=== PATIENT | female | born 1980 | race Caucasian/White ===

== ENCOUNTER 2020-01-24 10:13 | Emergency (ER) | payer OTHER, SELFPAY ==
[2020-01-24 10:25] VITALS: BP 142/93; PULSE 98; RESP 16; TEMP 36.8; O2SAT 99
--- NOTE | 2020-01-24 10:29 | ECG_ITS ---
Test Reason : ARRHYTHMIA Blood Pressure : / mmHG Vent. Rate : 090 BPM Atrial Rate : 090 BPM P-R Int : 136 ms QRS Dur : 078 ms QT Int : 356 ms P-R-T Axes : 068 029 040 degrees QTc Int : 435 ms Normal sinus rhythm Normal ECG No previous ECGs available Referred By: Lucy Barrientos Electronically Signed By:ZOE GALVAN MD
--- NOTE | 2020-01-24 10:29 | XR_ITS ---
EXAMINATION: XR CHEST CLINICAL INFORMATION: Palpitations COMPARISON: Previous chest x-ray and chest CT January 2009 TECHNIQUE: Frontal view of the chest was obtained. FINDINGS: The cardiac and mediastinal contours are normal. The lungs are well inflated. There may be bronchial wall thickening at the lung bases. The lungs are otherwise clear. There is no pleural effusion or pneumothorax. Bony structures are unremarkable. XR/XR chest 1V IMPRESSION: Well-inflated lungs. Question mild bronchial wall thickening at the lung bases. No evidence of pneumonia.
--- NOTE | 2020-01-24 10:30 | ED.ARRPALP ---
HPI - Arrhythmia/Palpitations General Chief Complaint: Arrhythmia/Palpitations Stated Complaint: palpitations Time Seen by Provider: 01/24/20 10:19 Source: patient Mode of arrival: ambulatory Limitations: no limitations History of Present Illness HPI narrative: on OCPs MD complaint: rapid heart beat, heart racing and palpitations Onset (ago): week(s) (1 week ago) Duration: intermittent Severity: moderate Context: occurred during rest and occurred during exertion Associated symptoms: chest pain, shortness of breath and diaphoresis Related Data Previous Rx's Medication Instructions Recorded metoprolol succinate 12.5 mg PO DAILY #30 tab 01/24/20 Allergies Allergy/AdvReac Type Severity Reaction Status Date / Time No Known Allergies Allergy Unverified 11/10/19 15:50 , dogs. Allergy Unknown Uncoded 03/15/19 00:00 Review of Systems Review of Systems: Constitutional : No Weight loss, No Fever, No Chills ENT/Mouth : No sore throat, No Rhinorrhea Eyes: No Eye Pain, No Swelling Cardiovascular : pos Chest Pain, pos SOB, no Dyspnea on Exertion, No Orthopnea, No Edema, pos Palpitations Respiratory : No Cough, No Sputum Gastrointestinal : pos Nausea, No Vomiting, No Diarrhea, No abdominal Pain, No Hematochezia, No Melena Genitourinary : No Dysuria, No Urinary Frequency Musculoskeletal : No joint pain, No Myalgias, No Joint Swelling Skin : No Skin Lesions, No rash Neuro : No Weakness, No Numbness, No Dizziness, No Headache All other systems reviewed and are negative PMFSH Past Medical History Attestation statement: The following information was validated with the patient. Medical History Asthma Social History Social History (Updated 01/24/20 @ 10:32 by Lucy Barrientos DO) Alcohol intake: never Smoking Status: Never smoker Use of substances other than those prescribed or required for medical reasons: No Advance Directives: No Advance Directives Information Provided: Yes Physical Exam Vital Signs: Vital Signs: Last Vital Signs Temp 98.7 F 01/24/20 11:19 Pulse 90 01/24/20 11:19 Resp 18 01/24/20 11:19 BP 143/90 H 01/24/20 11:19 Pulse Ox 96 01/24/20 11:19 Body Mass Index 0.1 Appearance: Alert. Oriented X3. No acute distress. Eyes: Pupils equal, round and reactive to light. ENT: Pharynx normal. Neck: Normal inspection. Neck supple. CVS: tachycardic heart rate and rhythm. Pulses normal. Respiratory: No respiratory distress. Breath sounds normal. Abdomen: Soft and nontender. Skin: Skin warm and dry. Normal skin color. Normal skin turgor. Extremities: No lower extremity edema. No calf ttp Neuro: Oriented X 3. No motor deficit. No sensory deficit. Course Course Course Narrative: no acute findings, will start on low dose metoprolol and refer to PCP for tachycardia and persistent high BPs MDM - Arrhythmia/Palpitations MDM Narrative Medical decision making narrative: 39 yo female on OCPs here with palpitations for 1 + weeks that have worsened also had associated sharp chest pain today around 4am - she gets weekly negative COVID tests done has never been positive, at this time will need labs, lytes, troponin x 1, ddimer for OCPs, possible start of bblocker if this continues, dispo per results and findings, seems atypical for ACS/dissection Lab Data Result diagrams: 01/24/20 10:42 01/24/20 11:43 Labs: Lab Results 01/24/20 01/24/20 01/24/20 Range/Units 10:42 10:42 10:42 WBC 6.8 (4.8-10.8) X10*3/uL RBC 5.05 (4.20-5.50) X10*6/uL Hgb 15.3 (12.0-16.0) g/dl Hct 46.0 (37-47) % MCV 91.1 (80-98) fL MCH 30.3 (27.0-33.0) pg MCHC 33.3 (31.0-35.0) g/dl RDW 12.1 (11.0-16.0) % Plt Count 328 (160-400) X10*3/uL MPV 8.6 L (9.4-12.3) fL Immature Gran % (Auto) 0.3 (0.0-0.4) % Neut % (Auto) 61.5 (45-73) % Lymph % (Auto) 27.6 (20-40) % [place] % (Auto) 9.0 (2-11) % Eos % (Auto) 1.0 (0-4) % Baso % (Auto) 0.6 (0-2) % Lymph # (Auto) 1.9 (1.2-4.9) X10*3/uL [place] # (Auto) 0.6 (0.1-1.2) X10*3/uL Eos # (Auto) 0.1 (0.0-0.4) X10*3/uL Baso # (Auto) 0.0 (0.0-0.2) X10*3/uL Abs Immat Gran (auto) 0.02 (0.00-0.03) X10*3/uL Absolute Neuts (auto) 4.2 (2.0-8.3) X10*3/uL Absolute Nucleated RBC 0.000 (0.0-0.012) X10*3/uL Nucleated RBC % (auto) 0.0 (0.0-0.2) /100WBC D-Dimer < 200 NG/ML Sodium Cancelled Potassium Cancelled Chloride Cancelled Carbon Dioxide Cancelled Anion Gap Cancelled BUN Cancelled Creatinine Cancelled Estim Creat Clear Calc Cancelled Estimated GFR Cancelled Random Glucose Cancelled Calcium Cancelled Magnesium Cancelled Total Bilirubin Cancelled Direct Bilirubin Cancelled AST Cancelled ALT Cancelled Alkaline Phosphatase Cancelled Troponin I High Sens (<3.5-17.0) ng/L B-Natriuretic Peptide (<100) pg/mL Total Protein Cancelled Albumin Cancelled Lipase Cancelled TSH Cancelled 01/24/20 01/24/20 Range/Units 10:42 11:43 WBC (4.8-10.8) X10*3/uL RBC (4.20-5.50) X10*6/uL Hgb (12.0-16.0) g/dl Hct (37-47) % MCV (80-98) fL MCH (27.0-33.0) pg MCHC (31.0-35.0) g/dl RDW (11.0-16.0) % Plt Count (160-400) X10*3/uL MPV (9.4-12.3) fL Immature Gran % (Auto) (0.0-0.4) % Neut % (Auto) (45-73) % Lymph % (Auto) (20-40) % [place] % (Auto) (2-11) % Eos % (Auto) (0-4) % Baso % (Auto) (0-2) % Lymph # (Auto) (1.2-4.9) X10*3/uL [place] # (Auto) (0.1-1.2) X10*3/uL Eos # (Auto) (0.0-0.4) X10*3/uL Baso # (Auto) (0.0-0.2) X10*3/uL Abs Immat Gran (auto) (0.00-0.03) X10*3/uL Absolute Neuts (auto) (2.0-8.3) X10*3/uL Absolute Nucleated RBC (0.0-0.012) X10*3/uL Nucleated RBC % (auto) (0.0-0.2) /100WBC D-Dimer NG/ML Sodium 136 Potassium 4.0 Chloride 103 Carbon Dioxide 24 Anion Gap 13 BUN 11 Creatinine 0.69 Estim Creat Clear Calc 97.5 Estimated GFR > 60 Random Glucose 90 Calcium 8.2 L Magnesium 1.9 Total Bilirubin 0.9 Direct Bilirubin 0.3 AST 24 ALT 13 Alkaline Phosphatase 44 Troponin I High Sens < 3.5 (<3.5-17.0) ng/L B-Natriuretic Peptide 22 (<100) pg/mL Total Protein 6.9 Albumin 3.8 Lipase 8 TSH 1.83 ECG Data Attestation: I personally reviewed and interpreted this ECG as follows: ECG interpretation date: 01/24/20 ECG interpretation time: 11:16 Interpretation: Rate: 90 Rhythm: NSR [place]: normal Normal P waves. Normal SANNA. Normal QRS complex. ST T wave : normal qTC: normal prior studies: no acute ischemia The study has been interpreted contemporaneously by me. . Discharge Plan Discharge Clinical Impression: Palpitations, Sinus tachycardia Patient Disposition: Home, Self-Care Instructions: Tachycardia (ED) Additional Instructions: return to ED for any worsening symptoms or concerns you will likely need an holter monitor by your pcp Prescriptions: New metoprolol succinate 25 mg tablet extended release 24 hr 12.5 mg PO DAILY Qty: 30 RF: 0 Referrals: Kevon Hernadez MD [Primary Care Provider] - 2 days (call for next appointment) Stand Alone Forms: Work/School Release
[2020-01-24 10:48] LABS: MANUAL DIFF FLAG NO
[2020-01-24 10:49] LABS: Basophils Percent Auto 0.6 % (0-2); Eosinophils Absolute Auto 0.1 X10*3/uL (0.0-0.4); Hemoglobin 15.3 g/dl (12.0-16.0); Imm Gran Abs Auto 0.02 X10*3/uL (0.00-0.03); Imm Gran Pct Auto 0.3 % (0.0-0.4); Lymphocytes Absolute Auto 1.9 X10*3/uL (1.2-4.9); Lymphocytes Percent Auto 27.6 % (20-40); Mean Corpuscular HGB Conc 33.3 g/dl (31.0-35.0); Mean Corpuscular Hemoglobin 30.3 pg (27.0-33.0); Mean Corpuscular Volume 91.1 fL (80-98); Mean Platelet Volume 8.6 fL (9.4-12.3); Monocytes Absolute Auto 0.6 X10*3/uL (0.1-1.2); Neutrophils Absolute Auto 4.2 X10*3/uL (2.0-8.3); Neutrophils Percent Auto 61.5 % (45-73); Platelet Count 328 X10*3/uL (160-400); Red Blood Count 5.05 X10*6/uL (4.20-5.50); Red Cell Distribution Width 12.1 % (11.0-16.0); White Blood Count 6.8 X10*3/uL (4.8-10.8)
[2020-01-24 10:59] LABS: D Dimer < 200 NG/ML
[2020-01-24 11:19] VITALS: BP 143/90; PULSE 90; RESP 18; TEMP 37.1; O2SAT 96
[2020-01-24 11:20] LABS: B Type Natriuretic Peptide 22 pg/mL (<100); Troponin-I High Sensitivity < 3.5 ng/L (<3.5-17.0)
--- NOTE | 2020-01-24 11:24 | PC.NURSE ---
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
[2020-01-24 12:14] LABS: Alanine Aminotransferase 13 U/L (0-31); Albumin Level 3.8 g/dL (3.5-5.0); Alkaline Phosphatase 44 U/L (39-117); Anion Gap 13 (12-20); Aspartate Amino Transferase 24 U/L (5-31); Bilirubin Direct 0.3 mg/dL (0.0-0.5); Bilirubin Total 0.9 mg/dL (0.0-1.0); Blood Urea Nitrogen 11 mg/dL (9-16); Calcium 8.2 mg/dL (8.4-10.2); Carbon Dioxide 24 mmol/L (22-29); Chloride 103 mmol/L (96-108); Creatinine Clr Calc Pharmacy 97.5; Estimated Glomerular Filt Rate > 60; Glucose Random 90 mg/dL (60-115); Lipase 8 U/L (8-78); Magnesium 1.9 mg/dL (1.6-2.6); Sodium 136 mmol/L (135-145); Total Protein 6.9 g/dL (6.5-8.0)
[2020-01-24 12:35] LABS: Thyroid Stimulating Hormone 1.83 uIU/mL (0.32-4.0)
== END 2020-01-24 13:38 | disposition home or self-care (01) ==
PROVIDERS: Emergency Provider Emergency Medicine; PCP Internal Medicine
DX: R00.2 Palpitations (principal); R00.0 Tachycardia, unspecified; Z79.899 Other long term (current) drug therapy
CPT/HCPCS: 36415; 71045; 80048; 80076; 83690; 83735; 83880; 84443; 84484; 85025; 85379; 93005; 99284

== ENCOUNTER 2022-09-04 11:29 | Outpatient (AMB) | payer BC, SELFPAY ==
[2022-09-04 11:31] VITALS: BP 130/90; PULSE 97; O2SAT 98; BMI 25.1
--- NOTE | 2022-09-04 11:31 | A.OFFPC_ITS ---
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 Allergy (Unknown, Uncoded 01/25/20 14:42) Unknown Tobacco use date assessed: 09/04/22 Dental Screening Dental Screen Date: 09/04/22 Did you have a dental visit in the last 12 months?: Yes Did you have a dental problem in the last 6 months where you did not have access to dental care?: No Was dental information given to patient?: Patient has dentist HPI lower back upper buttocks pain HPI Details left low back pain to buttock and upper pos thigh intermittently for a yea; more lifting and twisting at work; no change in BMs or urine PFSH Medical History (Updated 09/04/22 @ 11:53 by Kevon Hernadez MD) Asthma Surgical History No pertinent past surgical history Family History Father No problems noted. Mother No problems noted. Social History (Updated 01/24/20 @ 10:32 by Meka Barrientos DO) Housing: House Alcohol intake: never Patient Tobacco Use Status: Never used Tobacco e-Cigarette/Vaping Use: Never Used service: No Current occupational status: employed Current occupational exposures/hazards: No Cognitive needs: No Hearing needs: No Vision needs: No Questionnaire PHQ-9 Over the last 2 weeks, how often have you been bothered by any of the following problems? 1. Little interest or pleasure in doing things: not at all 2. Feeling down, depressed, or hopeless: not at all 3. Trouble falling or staying asleep, or sleeping too much: not at all 4. Feeling tired or having little energy: not at all 5. Poor appetite or overeating: not at all 6. Feeling bad about yourself - or that you are a failure or have let yourself or your family down: not at all 7. Trouble concentrating on things, such as reading the newspaper or watching television: not at all 8. Moving or speaking so slowly that other people could have noticed. Or the opposite - being so fidgety or restless that you have been moving around a lot more than usual: not at all 9. Thoughts that you would be better off or of hurting yourself in some way: not at all Total score: 0 Source: Developed by Drs. Maksim Pool, Berenice Steward, Vazquez Mayfield and colleagues, with an educational sridevi from [employer]. Thrive Questionnaire Date Thrive assessed: 09/04/22 I am a: Patient What is your living situation today?: I have a steady place to live Within the past 12 months, did the food you bought not last and you didn't have the money to get more?: Never true Within the past 12 months, did you worry whether your food would run out before you got money to buy more?: Never true Do you have trouble paying for medicines?: No Do you have trouble getting transportation to medical appointments?: No Do you have trouble paying your heating and electricity bill?: No Do you have trouble taking care of your child, family member or friend?: No Do you have trouble with day-to-day activities such as bathing, preparing meals, shopping, managing finances, etc.?: No Are you currently unemployed and looking for a job?: No Are you interested in more education?: No Please select the resources that you would like help with: None Currently or been in a relationship where the following occur: no concerns reported AUDIT C Alcohol Use Questionnaire (AUDIT-C) 1. How often do you have a drink containing alcohol?: Never Total Score: 0 DHAVAL-7 AMB Questionnaire DHAVAL-7 Date DHAVAL - 7 assessed: 09/04/22 Feeling nervous, anxious, or on edge: 0 = Not at all Not being able to stop or control worryin = Not at all Worrying too much about different things: 0 = Not at all Trouble relaxin = Not at all Being so restless that it is hard to sit still: 0 = Not at all Becoming easily annoyed or irritable: 0 = Not at all Feeling afraid as if something awful might happen: 0 = Not at all Total DHAVAL-7 score (0-4 normal; 5-9 mild; 10-14 moderate; 15-21 severe): 0 Source: Developed by Drs. Maksim Pool, Berenice Steward, Vazquez Mayfield and colleagues, with an educational sridevi from [employer]. Review of Systems Const Denies chills, Denies headache(s) and Denies weight loss ENT Denies headache(s) Card Denies chest pain, Denies syncope, Denies irregular heart rhythm and Denies dyspnea Resp Denies chest congestion, Denies cough and Denies dyspnea GI Denies change in stool character, Denies nausea and Denies vomiting Musc Denies deformity and Denies joint swelling Neuro Denies syncope and Denies headache(s) Physical exam (Primary Care) Vital Signs: Last Vital Signs Pulse 97 09/04/22 11:31 BP 130/90 H 09/04/22 11:31 Pulse Ox 98 09/04/22 11:31 Oxygen Delivery Method Room Air 09/04/22 11:31 BMI result Body Mass Index 25.1 Tobacco/Smoking Status: Tobacco use Status Tobacco use date assessed 09/04/22 09/04/22 11:37 Patient Tobacco Use Status Never used Tobacco 09/04/22 11:37 e-Cigarette/Vaping Use Never Used 09/04/22 11:37 PHQ-9: PHQ-9 Score PHQ-9: Total score 0 09/04/22 11:37 Thrive Assessment: Date of Thrive Assessment Date Thrive assessed 09/04/22 09/04/22 11:37 Currently or been in a relationship where the following occur: no concerns reported Const General: cooperative, comfortable and no acute distress Resp Effort & Inspection: normal respiratory effort Auscultation: clear to auscultation bilaterally Percussion: percussion normal Cardio Jugular venous distension: no JVD Rate: regular rate Rhythm: regular rhythm GI Inspection: Yes normal to inspection Back/Spine/Pelvis Other: tender left paralumbar musc; nl reflexes and neg SLR Assessment and Plan Assessment & Plan (1) Low back pain: Code(s): M54.50 - Low back pain, unspecified Plan: xr pt and rx Orders: Orders Comprehensive [place]. Panel Fast Today N28.9 - Disorder of kidney and ureter, unspecified Lipid Panel Today E78.5 - Hyperlipidemia, unspecified Thyroid Stimulating Hormone Today E03.9 - Hypothyroidism, unspecified Complete Blood Count Auto Diff Today D64.9 - Anemia, unspecified PT Evaluation and Treatment Today M54.50 - Low back pain, unspecified XR lumbar spine 2-3V Today M54.9 - Dorsalgia, unspecified Referrals Gastroenterology Referral R10.9 - Unspecified abdominal pain Medications: New naproxen (Naprosyn) 500 mg PO BID PRN 60 tabs 0RF pain Coding Level of Care Code Est Pt Level 3 (41930) Diagnoses Low back pain M54.50
== END 2022-09-04 11:51 | disposition home or self-care (01) ==
PROVIDERS: PCP Internal Medicine; Visit Provider Internal Medicine
DX: M54.50 Low back pain, unspecified (principal)
CPT/HCPCS: 99213

== ENCOUNTER 2022-09-20 09:44 | Outpatient (REF) | payer BC, OTHER, SELFPAY ==
[2022-09-20 09:55] LABS: MANUAL DIFF FLAG NO
[2022-09-20 10:14] LABS: Basophils Percent Auto 0.4 % (0-2); Eosinophils Absolute Auto 0.1 X10*3/uL (0.0-0.4); Hematocrit 44.7 % (37.0-47.0); Hemoglobin 14.7 g/dl (12.0-16.0); Imm Gran Abs Auto 0.03 X10*3/uL (0.00-0.03); Imm Gran Pct Auto 0.3 % (0.0-0.4); Lymphocytes Percent Auto 19.4 % (20-40); Mean Corpuscular HGB Conc 32.9 g/dl (31.0-35.0); Mean Corpuscular Hemoglobin 30.6 pg (27.0-33.0); Mean Corpuscular Volume 93.1 fL (80.0-98.0); Mean Platelet Volume 8.6 fL (9.4-12.3); Monocytes Absolute Auto 0.7 X10*3/uL (0.1-1.2); Monocytes Percent Auto 6.7 % (2-11); Neutrophils Absolute Auto 7.6 x10*3/uL (2.0-8.3); Neutrophils Percent Auto 72.2 % (45-73); Platelet Count 341 X10*3/uL (160-400); Red Cell Distribution Width 11.9 % (11.0-16.0); White Blood Count 10.5 X10*3/uL (4.8-10.8)
[2022-09-20 10:56] LABS: Alanine Aminotransferase 16 U/L (0-31); Alkaline Phosphatase 56 U/L (39-117); Anion Gap 18 (12-20); Aspartate Amino Transferase 25 U/L (5-31); Bilirubin Total 0.4 mg/dL (0.0-1.0); Blood Urea Nitrogen 12 mg/dL (9-16); Calcium 9.2 mg/dL (8.4-10.2); Carbon Dioxide 18 mmol/L (22-29); Chloride 108 mmol/L (96-108); Cholesterol 242 mg/dL; Estimated Glomerular Filt Rate > 60; Glucose Fasting 85 mg/dL (60-99); HDL Cholesterol 71 mg/dL; LDL Cholesterol Calculated 152 mg/dl; Potassium 4.6 mmol/L (3.3-5.1); Sodium 139 mmol/L (135-145); Total Protein 7.5 g/dL (6.5-8.0); Triglycerides 98 mg/dL
[2022-09-20 11:10] LABS: Thyroid Stimulating Hormone 1.71 uIU/mL (0.32-4.0)
== END 2022-09-20 09:45 | disposition home or self-care (01) ==
LOC: HO.LAB 09:44
PROVIDERS: PCP Internal Medicine; Visit Provider Internal Medicine
DX: E78.5 Hyperlipidemia, unspecified (principal); N28.9 Disorder of kidney and ureter, unspecified; E03.9 Hypothyroidism, unspecified; D64.9 Anemia, unspecified
CPT/HCPCS: 36415; 80053; 80061; 84443; 85025

== ENCOUNTER 2022-10-16 11:48 | Outpatient (REF) | payer BC, SELFPAY ==
--- NOTE | ~2022-10-16 | XR_ITS ---
EXAMINATION: XR LUMBOSACRAL SPINE CLINICAL INFORMATION: Pain mostly lower back COMPARISON: None available. TECHNIQUE: Three views of the lumbosacral spine. FINDINGS: Minimal rightward curvature of the lumbar spine. Mild multilevel lumbar spondylosis with mild loss of disc space height at L2-L3 and L5-S1. Possible spondylolysis in the lower lumbar spine is difficult to confirm due to overlying bone and soft tissues. XR/XR lumbar spine 2-3V IMPRESSION: Mild multilevel lumbar spondylosis. Additional imaging with CT scan or MRI should be considered for better visualization as these modalities are much more sensitive for detection of fracture or other underlying pathology.
== END 2022-10-16 11:49 | disposition home or self-care (01) ==
LOC: HO.XRAY 11:48
PROVIDERS: PCP Internal Medicine; Visit Provider Internal Medicine
DX: M54.50 Low back pain, unspecified (principal); M47.816 Spondylosis without myelopathy or radiculopathy, lumbar region
CPT/HCPCS: 72100

== ENCOUNTER 2023-05-27 07:16 | Day surgery (SDC) | payer BC, SELFPAY ==
[2023-05-25 13:34] VITALS: BMI 25.0
--- NOTE | 2023-05-25 15:14 | HO.ANESPROP2 ---
Documented by User: Suze Cornelius NP 05/25/23 15:14 HPI - Anesthesia Eval Consult details Narrative: 42yo F for Colonoscopy PMFSH Active Problems Active Problems: All Active Problems (Updated 09/04/22 @ 11:53 by Kevon Hernadez MD) Low back pain (Acute) Intermittent palpitations (Acute) Neck pain (Acute) Past Medical History Medical History (Updated 09/04/22 @ 11:53 by Kevon Hernadez MD) Asthma Family History Family History Father No problems noted. Mother No problems noted. Surgical History Surgical History History of surgery Hx of myringotomy History of tonsillectomy and adenoidectomy Social History Social History (Updated 01/24/20 @ 10:32 by Meka Barrientos DO) Housing: House Alcohol intake: never Patient Tobacco Use Status: Never used Tobacco e-Cigarette/Vaping Use: Never Used Advance Directives: No Advance Directives Information Provided: Yes service: No Current occupational status: employed Current occupational exposures/hazards: No Cognitive needs: No Hearing needs: No Vision needs: No Meds Allergies Allergy/AdvReac Type Severity Reaction Status Date / Time dog dander [dogs] Allergy Unknown Unknown Verified 05/27/23 07:52 Home Medications Medication Instructions Recorded Confirmed Last Taken Type L norgest/E estradiol-E estrad 1 tab PO DAILY 01/25/20 05/25/23 Unknown History 0.15 mg-30 mcg (84)/10 mcg(7) tabs,3mos (Seasonique) Exam Height,Weight and Vital Signs: Height 5 ft Weight 58.06 kg Assessment and Plan Assessment Anesthesia Assessment: Chart Reviewed Documented by User: Yamil Calvillo MD 05/27/23 07:58 PMF Past Medical History Medical History (Updated 09/04/22 @ 11:53 by Kevon Hernadez MD) Asthma Family History Family History Father No problems noted. Mother No problems noted. Family history of problems with anesthesia: No Surgical History Surgical History History of surgery Hx of myringotomy History of tonsillectomy and adenoidectomy History of Problems with Anesthesia: No Social History Social History (Updated 01/24/20 @ 10:32 by Meka Barrientos DO) Housing: House Alcohol intake: never Patient Tobacco Use Status: Never used Tobacco e-Cigarette/Vaping Use: Never Used Advance Directives: No Advance Directives Information Provided: Yes service: No Current occupational status: employed Current occupational exposures/hazards: No Cognitive needs: No Hearing needs: No Vision needs: No Meds Allergies Allergy/AdvReac Type Severity Reaction Status Date / Time dog dander [dogs] Allergy Unknown Unknown Verified 05/27/23 07:52 Home Medications Medication Instructions Recorded Confirmed Last Taken Type L norgest/E estradiol-E estrad 1 tab PO DAILY 01/25/20 05/25/23 Unknown History 0.15 mg-30 mcg (84)/10 mcg(7) tabs,3mos (Seasonique) Exam Airway Mallampati Class: II TM Dist: >3cm Neck ROM: Full Loose/Missing/Broken Teeth: No Heart: rrr Lungs: cta Assessment and Plan Final Anesthetic Review Family History of Problems with Anesthesia: No History of Problems with Anesthesia: No NPO: Yes ASA Class: II Final Preanesthetic Review: No Changes in Pt Med Stat, Meds/Allgs Chart Reviewed, Consent Obtained/Reviewed and Anes Risks/Benef Reviewed Patient Risk: Intermediate Procedure Risk: Intermediate Anesthetic Plan Anesthetic Plan: MAC: Disposition: Standard PACU
[2023-05-27 07:55] VITALS: BMI 24.0
[2023-05-27 08:14] LABS: UPreg QC Valid YES; Urine Pregnancy NEGATIVE (NEGATIVE)
[2023-05-27 08:15] VITALS: BP 131/91; PULSE 104; RESP 16; TEMP 36.5; O2SAT 98
[2023-05-27] MEDS: Lactated Ringers 1,000 ML 100 ML IVCONT (08:29)
[2023-05-27 09:50] VITALS: BP 116/83; PULSE 104; RESP 16; TEMP 36.6; O2SAT 100
--- NOTE | 2023-05-27 09:52 | P.BOP_ITS ---
Brief Operative Note Date of Service: 05/27/23 Pre-op diagnosis: Family history of colon cancer Post-op diagnosis: other (Colon polyps) Procedure: Colonoscopy to the cecum and TI with hot snare polypectomy x 3 Surgeon: Maksim Rebollar MD Anesthesia: MAC Was an Line Painting Machine Operator used for this Procedure?: No Estimated blood loss (mL): 0 Pathology: other (A. Proximal ascending colon polyp B. Polyp at 40cm C. Polyp at 30cm) Condition: stable Disposition: PACU
[2023-05-27 10:05] VITALS: BP 136/87; PULSE 93; RESP 16; TEMP 36.2; O2SAT 96
--- NOTE | 2023-05-27 10:20 | OP_ITS ---
DATE OF SERVICE: 05/27/2023 SURGEON: Maksim Rebollar MD INDICATIONS: The patient presents for evaluation of some change in bowel habits with associated constipation and family history of colorectal cancer. Full consent has been obtained from her for this, including risks of bleeding and perforation. PREOPERATIVE DIAGNOSIS: POSTOPERATIVE DIAGNOSIS: PROCEDURE PERFORMED: Colonoscopy to the cecum and terminal ileum with hot snare polypectomy x3. ESTIMATED BLOOD LOSS: COMPLICATIONS: ANESTHESIA: Monitored anesthesia care. ASSISTANTS: SPECIMENS: PREOPERATIVE DIAGNOSES: Change in bowel habits with constipation, colorectal cancer screening with associated family history of colon cancer. POSTOPERATIVE DIAGNOSES: Change in bowel habits with constipation, colorectal cancer screening with associated family history of colon cancer, colon polyps, small internal hemorrhoids. DESCRIPTION OF PROCEDURE: The patient was placed in the left lateral decubitus position. The digital rectal exam revealed no abnormalities. The Olympus video pediatric colonoscope was then entered into the rectum and advanced easily to the cecum. Once in the cecum, I did identify normal-appearing cecal pouch with appendiceal orifice and a normal-appearing ileocecal valve. The terminal ileum was cannulated and appeared normal. The scope was withdrawn back in the colon. The entire cecum and ileocecal valve appeared normal. The scope was slowly withdrawn assessing all mucosal surfaces carefully. Preparation was excellent. In the proximal ascending colon, was an approximately 8 mm polyp, which was removed by hot snare polypectomy and recovered by suction. The polypectomy site appeared clean, without any sign of residual polyp nor bleeding. At 40 cm, was an approximately 6-8 mm polyp, which was removed by hot snare polypectomy and recovered by suction. The polypectomy site appeared clean, without any sign of residual polyp nor bleeding. At 30 cm, was an approximately 1.2 cm polyp on a stalk, which was removed by hot snare polypectomy and then recovered by withdrawing it on the tip of the scope. The scope was advanced back to the polypectomy site, which appeared clean, without any sign of residual polyp nor bleeding. I did not visualize any other polyps, colitis, nor angiodysplasia. In the rectum, scope was retroflexed, visualizing some small internal hemorrhoids, but no other pathology. The rectal mucosa appeared normal. The scope was straightened out and withdrawn from the patient. She tolerated the procedure well and was returned to the recovery area in stable condition. IMPRESSION: 1. Colon polyps. 2. Internal hemorrhoids. PLAN: The results of the pathology will be checked. Assuming the polyps, particularly the larger polyp, is just a tubular adenoma, I would recommend a repeat colonoscopy within 3 years for further surveillance. She was advised not to use any aspirin or NSAIDs for 1 week. She was reminded to do her laboratories for the celiac disease and to continue to try to use some fiber and stool softener as needed for the constipation. MD MICHAEL Verma/[facility] / [id number]
== END 2023-05-27 10:29 | disposition home or self-care (01) ==
PROVIDERS: Nurse Practitioner; PCP Internal Medicine; Visit Provider Internal Medicine
PROC: 0DJD8ZZ Inspection of Lower Intestinal Tract, Via Natural or Artificial Opening Endoscopic (ICD-10-PCS; CPT 45378; principal; 2023-05-27 08:40)
DX: Z12.11 Encounter for screening for malignant neoplasm of colon (principal); D12.2 Benign neoplasm of ascending colon; D12.6 Benign neoplasm of colon, unspecified; K64.8 Other hemorrhoids; K59.00 Constipation, unspecified; Z80.0 Family history of malignant neoplasm of digestive organs
CPT/HCPCS: 45385; 81025; 88305; J2250; J2704

== ENCOUNTER 2023-12-17 12:55 | Outpatient (AMB) | payer BC, SELFPAY ==
[2023-12-17 12:57] VITALS: BP 144/90; PULSE 80; O2SAT 99; BMI 24.6
--- NOTE | 2023-12-17 12:57 | A.OFFPC_ITS ---
Vital Signs 12/17/23 12:57 Height 5 ft Weight 126 lb BMI 24.6 BP 144/90 H Blood Pressure Location Lt brachial Position Sitting Pulse 80 Pulse Source Pulse Oximeter Pulse Oximetry (%) 99 Oxygen Delivery Method Room Air Intake Visit Reasons: Annual PE Signal Apprentice Required: No Accompanied by: Self / Same As Patient Allergies dog dander [dogs] Allergy (Unknown, Verified 12/17/23 12:58) Unknown Medication List - Last Reconciled 12/18/23 by Kevon Hernadez MD albuterol sulfate 90 mcg/actuation 2 puffs inhalation Q4-6H PRN L norgest/e.estradiol-e.estrad 0.15 mg-30 mcg (84)/10 mcg (7) (Seasonique) 1 tab PO DAILY naproxen (Naprosyn) 500 mg PO BID PRN Tobacco use date assessed: 12/17/23 Dental Screening Dental Screen Date: 12/17/23 Did you have a dental visit in the last 12 months?: Yes Did you have a dental problem in the last 6 months where you did not have access to dental care?: No Was dental information given to patient?: Patient has dentist HPI Annual PE HPI Details mild asthma; otherwise healthy [facility] Medical History (Updated 12/18/23 @ 09:17 by Kevon Hernadez MD) Asthma Surgical History History of surgery Hx of myringotomy History of tonsillectomy and adenoidectomy Family History Father No problems noted. Mother No problems noted. Social History (Updated 01/24/20 @ 10:32 by Meka Barrientos DO) Housing: House Alcohol intake: never Patient Tobacco Use Status: Never used Tobacco Tobacco use type: Cigarette e-Cigarette/Vaping Use: Never Used Second Hand Smoke Exposure: No service: No Current occupational status: employed Current occupational exposures/hazards: No Cognitive needs: No Hearing needs: No Vision needs: No Questionnaire PHQ-9 Over the last 2 weeks, how often have you been bothered by any of the following problems? 1. Little interest or pleasure in doing things: not at all 2. Feeling down, depressed, or hopeless: not at all 3. Trouble falling or staying asleep, or sleeping too much: nearly every day 4. Feeling tired or having little energy: not at all 5. Poor appetite or overeating: not at all 6. Feeling bad about yourself - or that you are a failure or have let yourself or your family down: not at all 7. Trouble concentrating on things, such as reading the newspaper or watching television: not at all 8. Moving or speaking so slowly that other people could have noticed. Or the opposite - being so fidgety or restless that you have been moving around a lot more than usual: not at all 9. Thoughts that you would be better off or of hurting yourself in some way: not at all Total score: 3 Source: Developed by Drs. Maksim Pool, Berenice Steward, Vazquez Mayfield and colleagues, with an educational sridevi from [employer]. Thrive Questionnaire Date Thrive assessed: 12/17/23 I am a: Patient What is your living situation today?: I have a steady place to live Within the past 12 months, did the food you bought not last and you didn't have the money to get more?: Never true Within the past 12 months, did you worry whether your food would run out before you got money to buy more?: Never true Do you have trouble paying for medicines?: No Do you have trouble getting transportation to medical appointments?: No Do you have trouble paying your heating and electricity bill?: No Do you have trouble taking care of your child, family member or friend?: No Do you have trouble with day-to-day activities such as bathing, preparing meals, shopping, managing finances, etc.?: No Are you currently unemployed and looking for a job?: No Are you interested in more education?: No Please select the resources that you would like help with: None Currently or been in a relationship where the following occur: No concerns reported THRIVE Score: 0 AUDIT C Alcohol Use Questionnaire (AUDIT-C) 1. How often do you have a drink containing alcohol?: 4 or more times a week 2. How many drinks containing alcohol do you have on a typical day when you are drinking?: 3 or 4 3. How often do you have six or more drinks on one occasion?: Monthly Total Score: 7 DHAVAL-7 AMB Questionnaire DHAVAL-7 Date DHAVAL - 7 assessed: 12/17/23 Feeling nervous, anxious, or on edge: 0 = Not at all Not being able to stop or control worryin = Not at all Worrying too much about different things: 0 = Not at all Trouble relaxin = Not at all Being so restless that it is hard to sit still: 0 = Not at all Becoming easily annoyed or irritable: 0 = Not at all Feeling afraid as if something awful might happen: 0 = Not at all Total DHAVAL-7 score (0-4 normal; 5-9 mild; 10-14 moderate; 15-21 severe): 0 Source: Developed by Drs. Maksim Pool, Berenice Steward, Vazquez Mayfield and colleagues, with an educational sridevi from [employer]. Review of Systems Const Denies chills, Denies fatigue, Denies headache(s) and Denies weight loss Eyes Denies change in vision, Denies diplopia and Denies eye pain ENT Denies vertigo, Denies dizziness, Denies headache(s) and Denies nasal discharge Card Denies chest pain, Denies rapid heart rate and Denies dyspnea on exertion Resp Denies chest congestion, Denies cough, Denies pain with cough and Denies dyspnea on exertion GI Denies abdominal pain, Denies hematochezia and Denies change in bowel habits Musc Denies myalgias, Denies arthralgias and Denies joint swelling Skin/Breast Denies lesions and Denies unusual bruising Neuro Denies vertigo, Denies dizziness, Denies headache(s) and Denies focal weakness Endo Denies fatigue Physical exam (Primary Care) Vital Signs: Last Vital Signs Pulse 80 12/17/23 12:57 BP 144/90 H 12/17/23 12:57 Pulse Ox 99 12/17/23 12:57 Oxygen Delivery Method Room Air 12/17/23 12:57 BMI result Body Mass Index 24.6 Tobacco/Smoking Status: Tobacco use Status Tobacco use date assessed 12/17/23 12/17/23 12:58 Patient Tobacco Use Status Never used Tobacco 12/17/23 12:58 Tobacco use type Cigarette 12/17/23 12:58 e-Cigarette/Vaping Use Never Used 12/17/23 12:58 PHQ-9: PHQ-9 Score PHQ-9: Total score 3 12/17/23 12:58 Thrive Assessment: Date of Thrive Assessment Date Thrive assessed 12/17/23 12/17/23 13:04 Currently or been in a relationship where the following occur: No concerns reported Const General: cooperative, healthy appearing and no acute distress Orientation/consciousness: oriented to person, oriented to place and oriented to time HENMT Head: Yes normal to inspection, Yes normocephalic and Yes atraumatic Mouth: Normal oral and palatal mucosa present and tongue normal Throat: Yes posterior oropharynx normal and Yes uvula midline Eyes General: appearance normal, both eyes and all related structures Neck Neck: Yes normal visual inspection, Yes full ROM and Yes no lymphadenopathy Thyroid: Thyroid normal Carotids: normal carotid upstroke Chest Chest palpation & inspection: normal inspection of the chest Resp Effort & Inspection: normal respiratory effort and able to speak in complete sentences Auscultation: clear to auscultation bilaterally Cardio Jugular venous distension: no JVD Palpation: normal PMI Rate: regular rate Rhythm: regular rhythm Heart sounds: S1 normal heart sound present and S2 normal heart sound present GI Inspection: Yes normal to inspection Palpation (GI): Soft to palpation and No hepatosplenomegaly present Auscultation: normal bowel sounds General: Yes no CVA tenderness Back/Spine/Pelvis Back: no CVA tenderness Skin General skin exam: no rashes or lesions noted Neuro General: oriented to person, oriented to place and oriented to time Extrem General: Yes normal to inspection and Yes full ROM Coding Level of Care Code Est Pt Prev Care 40-64y(48293) Diagnoses Physical exam Z00.00 Asthma J45.909 Assessment & Plan Assessment & Plan (1) Physical exam: Code(s): Z00.00 - Encounter for general adult medical examination without abnormal findings Category: Medical Plan: stable; do labs (2) Asthma: Code(s): J45.909 - Unspecified asthma, uncomplicated Category: Medical Plan: ref pulmonary Orders: Orders Lipid Panel 12/17/23 Z13.220 - Encounter for screening for lipoid disorders Thyroid Stimulating Hormone 12/17/23 Z13.29 - Encounter for screening for other suspected endocrine disorder Complete Blood Count Auto Diff 12/17/23 Z13.0 - Encounter for screening for diseases of the blood and blood-forming organs and certain disorders involving the immune mechanism Comprehensive [place]. Panel Fast 12/17/23 Z13.9 - Encounter for screening, unspecified PT Evaluation and Treatment 12/17/23 M54.50 - Low back pain, unspecified CT lumbar spine wo IV con 12/17/23 M54.50 - Low back pain, unspecified Referrals Pulmonology Referral J45.905 - Unspecified asthma, uncomplicated Medications: Changed From albuterol sulfate 90 mcg/actuation (ProAir HFA) 2 puffs inhalation Q4-6H PRN 8.5 grams 8RF bronchospasm To albuterol sulfate 90 mcg/actuation 2 puffs inhalation Q4-6H PRN 8.5 grams 8RF bronchospasm
== END 2023-12-17 13:29 | disposition home or self-care (01) ==
PROVIDERS: PCP Internal Medicine; Visit Provider Internal Medicine
DX: Z00.00 Encounter for general adult medical examination without abnormal findings (principal); J45.909 Unspecified asthma, uncomplicated

== ENCOUNTER → 2023-12-17 12:55 | Outpatient (BNVA) | payer BC, SELFPAY | PROVIDERS: PCP Internal Medicine; Visit Provider Internal Medicine ==

== ENCOUNTER 2024-01-11 13:22 | Outpatient (AMB) | payer BC, SELFPAY ==
--- NOTE | 2024-01-11 13:04 | MHC.OFFVIS ---
Vital Signs 01/11/24 13:25 Height 5 ft Weight 128 lb 15.527 oz BMI 25.2 BP 142/98 H Blood Pressure Location Rt brachial Position Sitting Pulse 100 Pulse Source Pulse Oximeter Pulse Oximetry (%) 98 Oxygen Delivery Method Room Air Intake Visit Reasons: Asthma Allergies dog dander [dogs] Allergy (Unknown, Verified 01/11/24 13:27) Unknown HPI HPI Asthma: Details: Ellyn is a pleasant 43 year old female, never smoker, with underlying asthma since childhood. She was referred by PCP for pulmonary evaluation. She is suboptimally controlled on albuterol MDI, using frequently. She continues to report chest tightness, dyspnea on exertion and wheezing. No cough. She was previously on Dulera and Singulair with good effect however has not been on maintenance therapy in quite some time. She reports asthma diagnosed as a child, never requiring intubation related to respiratory distress. She also notes significant PNA in 2008 requiring inpatient care including chest tube placement. Denies any hospitalizations related to respiratory issues since. She reports multiple seasonal allergies, previously had allergen immunotherapy for 7 years, last in 2017. She denies any recent allergy testing. She uses claritin PRN. She does have two cats at home. She denies any occupational exposures. She reports mother with asthma and maternal grandmother, smoker, with emphysema, otherwise no pertinent family history. [facility] Medical History (Updated 01/11/24 @ 13:42 by Magdalena Lopez NP) Asthma Surgical History History of surgery Hx of myringotomy History of tonsillectomy and adenoidectomy Family History Father No problems noted. Mother No problems noted. Social History (Updated 01/11/24 @ 13:27 by Tammie Velarde CMA) Housing: House Alcohol intake: never Patient Tobacco Use Status: Former Tobacco user Tobacco use type: Cigarette e-Cigarette/Vaping Use: Never Used Second Hand Smoke Exposure: No service: No Current occupational status: employed Current occupational exposures/hazards: No Cognitive needs: No Hearing needs: No Vision needs: No Review of Systems Const Denies chills, Denies excessive sweating, Denies fever(s), Denies headache(s) and Denies night sweats Eyes Denies dry eyes, Denies irritation and Denies itchy eyes ENT Reports Normal hearing present, Denies headache(s), Denies nasal congestion, Denies nasal discharge, Denies post nasal drip and Denies sore throat Card Denies chest pain, Denies chest pain at rest, Denies chest pain with activity, Denies claudication, Denies leg edema, Reports dyspnea on exertion, Denies orthopnea and Denies paroxysmal nocturnal dyspnea Resp Denies chest congestion, Denies cough, Denies excessive phlegm production, Denies pain on inspiration, Denies pain with cough, Reports dyspnea on exertion, Denies stridor and Reports wheezing Musc Denies myalgias Neuro Reports Normal hearing present and Denies headache(s) Endo Denies excessive sweating Conner/Lymph Denies lymphadenopathy Aller/Immun Denies itchy eyes, Denies seasonal rhinorrhea and Reports wheezing Physical Exam Vital Signs: Last Vital Signs Pulse 100 01/11/24 13:25 BP 142/98 H 01/11/24 13:25 Pulse Ox 98 01/11/24 13:25 Oxygen Delivery Method Room Air 01/11/24 13:25 BMI result Body Mass Index 25.2 Const General: cooperative, healthy appearing, comfortable, no acute distress, well developed and alert Orientation/consciousness: patient oriented x3 Limitations: no limitations HEENT Head: Yes normal to inspection, Yes normocephalic and Yes atraumatic Ears: hearing grossly normal bilaterally and external ears normal Eyes General: appearance normal, both eyes and all related structures Eyelids: Yes eyelids normal Sclerae: sclerae normal EOM: EOMs intact bilaterally Neck Neck: Yes normal visual inspection and Yes no lymphadenopathy Lymphatic: no lymphadenopathy noted Chest Chest palpation & inspection: normal inspection of the chest Resp Effort & Inspection: normal respiratory effort, able to speak in complete sentences, no audible wheezes, no cough, no stridor, not tachypneic, no tripod positioning and no use of accessory muscles Auscultation: clear to auscultation bilaterally Cardio Jugular venous distension: no JVD Rate: regular rate Rhythm: regular rhythm Skin Other: warm, dry General skin exam: no rashes or lesions noted Neuro General: patient oriented x3 Cranial nerves: Yes Normal hearing present Cognition (Neuro): normal cognition Gait exam (Neuro): Normal gait present Extrem General: Yes normal to inspection, Yes capillary refill normal, Yes no clubbing, cyanosis or edema and Yes no pedal edema Psych Appearance: grossly normal and well kempt Speech and movement: Normal speech and movement present and Clear speech present Affect: normal affect Attitude: cooperative Thought process: Normal thought process present Thought content: Normal thought content present Insight: Good insight present (Psych) Judgement: Good judgement present (Psych) Assessment & Plan Assessment & Plan (1) Asthma: Code(s): J45.909 - Unspecified asthma, uncomplicated Category: Medical (2) Environmental allergies: Code(s): Z91.09 - Other allergy status, other than to drugs and biological substances Category: Medical Plan Ellyn's symptoms are likely related to poorly controlled asthma. Will send for PFT and RAST to assess. Will start patient on Symbicort and Singulair. Reviewed ways to minimize allergen exposures. All questions were answered and patient is in agreement of plan. Will follow up in 6-8 weeks or sooner if needed. Orders: Orders PFT pulmonary function test Today J45.909 - Unspecified asthma, uncomplicated Immunoglobulin E Today Z91.09 - Other allergy status, other than to drugs and biological substances Resp Allergy Profile Region I Today Z91.09 - Other allergy status, other than to drugs and biological substances Medications: New budesonide-formoterol 80-4.5 mcg/actuation (Symbicort) 2 puffs inhalation Q12H 10.2 grams 6RF montelukast (Singulair) 10 mg PO BEDTIME 30 tabs 6RF Coding Level of Care Code New Pt Level 4 (92886) Diagnoses Asthma J45.909 Environmental allergies Z91.09
[2024-01-11 13:25] VITALS: BP 142/98; PULSE 100; O2SAT 98; BMI 25.2
== END 2024-01-11 13:47 | disposition home or self-care (01) ==
PROVIDERS: PCP Internal Medicine; Referring Provider Internal Medicine; Visit Provider Nurse Practitioner Family
DX: J45.909 Unspecified asthma, uncomplicated (principal); Z91.09 Other allergy status, other than to drugs and biological substances
CPT/HCPCS: 99204

== ENCOUNTER 2024-02-12 11:07 | Outpatient (REF) | payer BC, SELFPAY ==
[2024-02-12 11:17] LABS: MANUAL DIFF FLAG NO
--- OUTSIDE RECORDS SUMMARY | 2024-02-12 11:19 | XMS_ITS ---
Author Organization [facility] Address [address] [place] [address] Care Team Providers Care Motor Vehicle Inspector Name Role Phone Kevon Hernadez MD Primary Care Provider Maksim Winchester Unavailable [phone] ALLERGIES No Known Allergies REASON FOR VISIT Patient presents today for abdominal pain MEDICATIONS Medication SIG (Take, Route, Frequency, Duration) Notes Start Date End Date Status Albuterol Sulfate HFA 108 (90 Base) MCG/ACT Inhalation for 25 PRN Activ e Naproxen 500 MG Oral for 30 PRN Ac tive Levonorgest-Eth Estrad 91-Day 0.15-0.03 &0.01 MG TAKE 1 TABLET BY MOUTH EVERY DAY Oral for 91 Active IMMUNIZATIONS Vaccine Route Administration Date Status Comme nts Influenza Unknown 02/25/2023 Refused SOCIAL HISTORY Tobacco Use: Social History Observation Description Date Details (start date - stop date) Never Smoker NA - NA Sex Assigned At : Social History Observation Description Sex Assigned At Unknown Tobacco Use/Smoking Question Answer Notes Patient is a nonsmoker Alcohol Screen Question Answer Notes Did you have a drink contain ing alcohol in the past year? Yes How often did you have a dri nk containing alcohol in the past year? 4 or more times a week (4 points) How many drinks did you have on a typical day when you were drinking in the past year? 1 or 2 drinks (0 point) How often did you have 6 or more drinks on one occasion in the past year? Never (0 point) Points 4 Interpretation Positive PROBLEMS Problem Type ICD Code Onset Dates Problem Status W/U Status Risk SNOMED Code Notes Problem Irritable bowel syndrome with constipation (K58.1) Active confirmed 670453446 Problem Change in bowel habits (R19.4) Active confirmed 71140859 Problem Family history of colon cancer (Z80.0) Active confirmed 674449178 VITAL SIGNS BMI 25.07 kg/m2 02/25/2023 Blood pressure systolic 000 mm Hg 02/25/19 24 Blood pressure diastolic 00 mm Hg 024 Height 5 ft in 02/25/2023 Temperature 98.0 degrees Fahrenheit 02/25/19 24 Weight 128 lb 6 oz lbs 02/25/2023 Encounters Encounter Location Date Provider Diagnosis [facility] [address] [place] [address] 02/25/2023 Maksim Rebollar Irritable bowel syndrome with constipation K58.1 ; Change in bowel habits R19.4 and Family history of colon cancer Z80.0 ASSESSMENTS Encounter Date Diagnosis Assessment Notes Treatment Notes Treatment Clinical Notes 02/25/2023 Irritable bowel syndrome with constipation (ICD-10 - K58.1) Start using fiber regularly such as 2 Metamucil or Citrucel fiber pills daily or twice a day with a lot of water. Stay on a good diet. 02/25/2023 Change in bowel habits (ICD-10 - R19.4) 02/25/2023 Family history of colon cancer (ICD-10 - Z80.0) PLAN OF TREATMENT Treatment Notes Assessment Notes Irritable bowel syndrome with constipati on Start using fiber regularly such as 2 Metamucil or Citrucel fiber pills daily or twice a day with a lot of water. Stay on a good diet. Pending Test Test Name Order Date CELIAC PANEL #10 02/25/2023 Future Test Test Name Order Date COLONOSCOPY 02/25/2023 Next Appt Details Follow Up: prn, Reason: Progress Notes * Examination Category Sub-Category Detail Notes General Examination GENERAL APPEARANCE: pleasant , well nourished, well developed, in no acute distress HEAD: EYES: sclera non-icteric EARS: NOSE: THROAT: NECK/THYROID: no cervical lymphade nopathy, neck supple HEART: S1, S2 normal CHEST: LUNGS: clear to auscultatio n bilaterally ABDOMEN: normal bowel sounds, no guarding or rigidity, no guarding or rigidity, no masses palpable, soft, nontender, nondistended NEUROLOGIC: alert and oriented SKIN: nonjaundiced, no spi mariajose angiomata EXTREMITIES: no edema PERIPHERAL PULSES: BACK: BREASTS: MUSCULOSKELETAL: MALE GENITOURINARY: LYMPH NODES: RECTAL EXAM: FEMALE GENITOURINARY: ORAL CAVITY: mucosa moist
--- OUTSIDE RECORDS SUMMARY | 2024-02-12 11:19 | XMS_ITS ---
Author Organization [facility] Address [address] [place] [address] Care Team Providers Care Carburetor Expert Name Role Phone Kevon Hernadez MD Primary Care Provider Maksim Winchester [phone] REASON FOR VISIT prior authorizaiton Encounters Encounter Location Date Provider Diagnosis [facility] [address] [place] [address] 02/25/2023 Maksim Rebollar PLAN OF TREATMENT No Information
--- OUTSIDE RECORDS SUMMARY | 2024-02-12 11:19 | XMS_ITS ---
Author Organization [facility] Address [address] [place] [address] Care Team Providers Care Range Rider Name Role Phone Kevon Hernadez MD Primary Care Provider Maksim Winchester [phone] REASON FOR VISIT change in bowel habits, family history of colon ca Encounters Encounter Location Date Provider Diagnosis [facility] [address] [place], [place] [phone] 05/27/2023 Maksim Rebollar Colon polyps K63.5 ; Family history of colon cancer Z80.0 ; Change in bowel habits R19.4 and Other hemorrhoids K64.8 ASSESSMENTS Encounter Date Diagnosis Assessment Notes Treatment Notes Treatment Clinical Notes 05/27/2023 Colon polyps (ICD-10 - K63.5) 05/27/2023 Family history of colon cancer (ICD-10 - Z80.0) 05/27/2023 Change in bowel habits (ICD-10 - R19.4) 05/27/2023 Other hemorrhoids (ICD-10 - K64.8) PLAN OF TREATMENT No Information
--- OUTSIDE RECORDS SUMMARY | 2024-02-12 11:20 | XMS_ITS | Patient Health Record ---
Author Organization [facility] Address [address] [place] [address] Care Team Providers Care Land Surveying Survey Worker Name Role Phone Kevon Hernadez MD Primary Care Provider Maksim Winchester [phone] ALLERGIES No Known Allergies RESULTS Component Value Reference Range Notes Ur Preg Test Reviewed date:05/27/2023 06:00:54 PM Interpretation: Performing Lab:[facility], [address] [place] [phone] Notes/Report: Urine NEGATIVE NEGATIVE This test was developed to detect early . False negative results may occur after the 5th - 7th week of when using this test method. If clinically indicated, consider a serum hCG. Pathology Reviewed date:06/10/2023 08:57:03 AM Interpretation: Performing Lab:[facility], [address] [place] [phone] Notes/Report: REASON FOR REFERRAL No Information MEDICATIONS Medication SIG (Take, Route, Frequency, Duration) [...] bowel syndrome with constipation (K58.1) Active confirmed 241219700 Problem Change in bowel habits (R19.4) Active confirmed 52680218 Problem Family history of colon cancer (Z80.0) Active confirmed 041625597 VITAL SIGNS Temperature 98.0 degrees Fahrenheit 02/25/2023 Blood pressure diastolic 00 mm Hg 02/25/2023 Height 5 ft in 02/25/2023 Blood pressure systolic 000 mm Hg 02/25/2023 Weight 128 lb 6 oz lbs 02/25/2023 BMI 25.07 kg/m2 02/25/2023 Encounters Encounter Location Date Provider Diagnosis [facility] [address] [place], [place] [phone] 05/27/2023 Maksim Rebollar Colon polyps K63.5 ; Family history of colon cancer Z80.0 ; Change in bowel habits R19.4 and Other hemorrhoids K64.8 [facility] [address] [place] [phone] 02/25/2023 Maksim Rebollar Irritable bowel syndrome with constipation K58.1 ; Change in bowel habits R19.4 and Family history of colon cancer Z80.0 [facility] [address] [place] [phone] 02/25/2023 Maksim Rebollar ASSESSMENTS Encounter Date Diagnosis Assessment Notes Treatment Notes Treatment Clinical Notes 05/27/2023 Colon polyps (ICD-10 - K63.5) 05/27/2023 Family history of colon cancer (ICD-10 - Z80.0) 02/25/2023 Change in bowel habits (ICD-10 - R19.4) 02/25/2023 Irritable bowel syndrome with constipation (ICD-10 - K58.1) Start using fiber regularly such as 2 Metamucil or Citrucel fiber pills daily or twice a day with a lot of water. Stay on a good diet. 05/27/2023 Change in bowel habits (ICD-10 - R19.4) 02/25/2023 Family history of colon cancer (ICD-10 - Z80.0) 05/27/2023 Other hemorrhoids (ICD-10 - K64.8) PLAN OF TREATMENT Pending Test Test Name Order Date CELIAC PANEL #10 02/25/2023 Future Test Test Name Order Date COLONOSCOPY 02/25/2023 Insurance Providers Payer Name Payer Address Payer Phone Subscriber Number Group Number Insured Name Patient Relationship to Insured Coverage Start Date Coverage End Date [facility] [address] [place] [address] [id number] LEBRON WILSON Self - patient is the insured MEDICAL (GENERAL) HISTORY Medical History History ICD Code Mild asthma-inhaler prn Tachycardia ---no workup Denies [place],DM,CVA,Lung disease,renal dise ase Surgical History Surgery Date(Month/Year) Adenoids/Tonsils 1989 Cervical surgery for Grade III dyspalsia Ear tubes
[2024-02-12 12:24] LABS: Basophils Percent Auto 0.6 % (0-2); Eosinophils Percent Auto 0.4 % (0-4); Hematocrit 44.3 % (37.0-47.0); Hemoglobin 14.8 g/dl (12.0-16.0); Imm Gran Abs Auto 0.03 X10*3/uL (0.00-0.03); Imm Gran Pct Auto 0.4 % (0.0-0.4); Lymphocytes Absolute Auto 2.3 X10*3/uL (1.2-4.9); Mean Corpuscular HGB Conc 33.4 g/dl (31.0-35.0); Mean Corpuscular Hemoglobin 31.6 pg (27.0-33.0); Mean Corpuscular Volume 94.5 fL (80.0-98.0); Mean Platelet Volume 8.8 fL (9.4-12.3); Monocytes Absolute Auto 0.6 X10*3/uL (0.1-1.2); Monocytes Percent Auto 8.3 % (2-11); Neutrophils Absolute Auto 4.2 x10*3/uL (2.0-8.3); Neutrophils Percent Auto 58.3 % (45-73); Platelet Count 322 X10*3/uL (160-400); Red Blood Count 4.69 X10*6/uL (4.20-5.50); Red Cell Distribution Width 12.2 % (11.0-16.0); White Blood Count 7.3 X10*3/uL (4.8-10.8)
[2024-02-12 13:10] LABS: Alanine Aminotransferase 22 U/L (0-31); Albumin Level 4.2 g/dL (3.5-5.0); Alkaline Phosphatase 44 U/L (39-117); Anion Gap 16 (12-20); Aspartate Amino Transferase 46 U/L (5-31); Bilirubin Total 0.4 mg/dL (0.0-1.0); Blood Urea Nitrogen 9 mg/dL (9-16); Calcium 8.7 mg/dL (8.4-10.2); Carbon Dioxide 25 mmol/L (22-29); Chloride 108 mmol/L (96-108); Cholesterol 288 mg/dL (<200); Estimated Glomerular Filt Rate > 60; Glucose Fasting 72 mg/dL (60-99); HDL Cholesterol 77 mg/dL (>40); LDL Cholesterol Calculated 179 mg/dL (<100); Potassium 4.5 mmol/L (3.3-5.1); Sodium 144 mmol/L (135-145); Total Protein 7.9 g/dL (6.5-8.0); Triglycerides 163 mg/dL (<150)
[2024-02-12 13:27] LABS: Thyroid Stimulating Hormone 1.31 uIU/mL (0.32-4.0)
[2024-02-15 22:43] LABS: Class Alternaria alternata 0; Class Aspergillus fumigatus 0; Class Bermuda Grass 0; Class Birch 1; Class Cat Dander 1; Class Cladosporium herbarum 0; Class Cockroach 0; Class Common Ragweed 0; Class Cottonwood 0; Class Derm. pterony 3; Class Dermatophagoides farinae 3; Class Dog Dander 0; Class Elm 0; Class Maple Box Elder 0/1; Class Mountain Cedar 0; Class Mouse Urine Protein 0; Class Mugwort 0; Class Oak 0/1; Class Penicillium crysogenum 0; Class Rough Pigweed 0; Class Sheep Sorrel 0; Class Sycamore 0/1; Class Timothy Grass 1; Class Walnut Tree 1; Class White Ash 0; Class White Mulberry 0; D001 IgE D pteronyssinus 5.13 kU/L; D002 - IgE D farinae 5.74 kU/L; E001 - IgE Cat Dander 0.36 kU/L; E005 - IgE Dog Dander <0.10 kU/L; E072-IgE Mouse Urine <0.10 kU/L; G002 IgE Bermuda Grass <0.10 kU/L; G006 - IgE Timothy Grass 0.36 kU/L; I006-IgE Cockroach, German <0.10 kU/L; Immunoglobulin E 84 kU/L (<OR=114); M001 IgE Penicillium chrysogen <0.10 kU/L; M002 - IgE Cladosporium herbar <0.10 kU/L; M003 - IgE Aspergillus fumigat <0.10 kU/L; M006 - IgE Alternaria alternat <0.10 kU/L; T001 IgE Maple/Box Elder 0.23 kU/L; T003 IgE Common Silver Birch 0.36 kU/L; T006 - IgE Cedar, Mountain <0.10 kU/L; T008 IgE Elm, American <0.10 kU/L; T010 - IgE Walnut 0.38 kU/L; T011 - IgE Maple Leaf Sycamore 0.21 kU/L; T014 - IgE Cottonwood <0.10 kU/L; T015 - IgE Ash, White <0.10 kU/L; T070 - IgE White Mulberry <0.10 kU/L; W001 - IgE Ragweed, Short <0.10 kU/L; W006 - IgE Mugwort <0.10 kU/L; W014 IgE Pigweed, Common <0.10 kU/L; W018 IgE Sheep Sorrel <0.10 kU/L
== END 2024-02-12 11:08 | disposition home or self-care (01) ==
LOC: HO.LAB 11:07
PROVIDERS: Absent Provider Nurse Practitioner Family; PCP Internal Medicine; Visit Provider Internal Medicine
DX: Z13.0 Encounter for screening for diseases of the blood and blood-forming organs and certain disorders involving the immune mechanism (principal); Z13.220 Encounter for screening for lipoid disorders; Z13.29 Encounter for screening for other suspected endocrine disorder; Z13.9 Encounter for screening, unspecified; Z91.09 Other allergy status, other than to drugs and biological substances
CPT/HCPCS: 36415; 80053; 80061; 82785; 84443; 85025; 86003

== ENCOUNTER 2024-03-18 14:48 | Outpatient (REF) | payer BC, SELFPAY ==
--- NOTE | ~2024-03-18 | CT_ITS ---
CLINICAL HISTORY: M54.50 - Low back pain, unspecified CT lumbar spine without intravenous contrast Comparison: None Findings: There is no evidence of a pars defect. The bones are without evidence of lytic or blastic lesion There is normal vertebral body height with no evidence of compression fracture. There is normal alignment. Lordotic curvature is preserved. Segmental analysis as below (MR is more accurate in the evaluation of disc herniation and central canal pathology): L1-L2: No herniation or stenosis. L2-L3: No herniation or stenosis. L3/L4: No herniation or stenosis. L4/L5: No herniation or stenosis. L5/S1: No herniation or stenosis. Normal sacroiliac joints. Paravertebral soft tissues within normal limits. Imaged portion of the retroperitoneal structures unremarkable. Impression: 1. Negative CT lumbar spine for acute process. This document has been electronically signed by: Aly Veloz MD on 03/21/2024 09:27:01
--- OUTSIDE RECORDS SUMMARY | 2024-03-18 16:12 | XMS_ITS | Patient Health Record ---
Author Organization [facility] Address [address] [place] [address] Care Team Providers Care Flute Polisher Name Role Phone Kevon Hernadez MD Primary Care Provider Maksim Winchester [phone] ALLERGIES No Known Allergies RESULTS Component Value Reference Range Notes Ur Preg Test Reviewed date:05/27/2023 06:00:54 PM Interpretation: Performing Lab:[facility], [address] [place] [phone] Notes/Report: Urine NEGATIVE NEGATIVE This test was developed to detect early . False negative results may occur after the 5th - 7th week of when using this test method. If clinically indicated, consider a serum hCG. Pathology Reviewed date:06/10/2023 08:57:03 AM Interpretation: Performing Lab:[facility], [address] [place] [phone] Notes/Report: REASON FOR REFERRAL No Information MEDICATIONS [...] bowel syndrome with constipation (K58.1) Active confirmed 751683084 Problem Change in bowel habits (R19.4) Active confirmed 71120533 Problem Family history of colon cancer (Z80.0) Active confirmed [id number] Encounters Encounter Location Date Provider Diagnosis [facility] [place] [address] [place] [phone] 05/27/2023 Maksim Rebollar Colon polyps K63.5 ; [...] Insured Coverage Start Date Coverage End Date [facility] [address] [place] [address] [phone] [id number] LERBON WILSON Self - patient is the insured MEDICAL (GENERAL) HISTORY Medical History History ICD Code Mild asthma-inhaler prn Tachycardia ---no workup Denies [place],DM,CVA,Lung disease,renal dise ase Surgical History Surgery Date(Month/Year) Adenoids/Tonsils 1989 Cervical surgery for Grade III dyspalsia Ear tubes
--- OUTSIDE RECORDS SUMMARY | 2024-03-18 16:13 | XMS_ITS ---
Author Organization [facility] Address [address] [place] [address] Care Team Providers Care Taxi Cab Driver Name Role Phone Kevon Hernadez MD Primary Care Provider Maksim Winchester Unavailable [phone] ALLERGIES No Known Allergies REASON FOR VISIT [...] bowel syndrome with constipation (K58.1) Active confirmed 823785111 Problem Change in bowel habits (R19.4) Active confirmed 98349065 Problem Family history of colon cancer (Z80.0) Active confirmed 449176829 VITAL SIGNS BMI 25.07 kg/m2 02/25/2023 Blood pressure systolic 000 mm Hg 02/25/19 24 Blood pressure diastolic 00 mm Hg 024 Height 5 ft in 02/25/2023 Temperature 98.0 degrees Fahrenheit 02/25/19 24 Weight 128 lb 6 oz lbs 02/25/2023 Encounters Encounter Location Date Provider Diagnosis [facility] [address] [place] [address] 02/25/2023 Maksim Rebollar Irritable bowel syndrome with [...]
--- OUTSIDE RECORDS SUMMARY | 2024-03-18 16:13 | XMS_ITS ---
Author Organization [facility] Address [address] [place] [address] Care Team Providers Care Bottoming Room Inspector Name Role Phone Kevon Hernadez MD Primary Care Provider Maksim Winchester [phone] REASON FOR VISIT prior authorizaiton Encounters Encounter Location Date Provider Diagnosis [facility] [address] [place] [address] 02/25/2023 Maksim Rebollar PLAN OF TREATMENT No Information
--- OUTSIDE RECORDS SUMMARY | 2024-03-18 16:13 | XMS_ITS ---
Author Organization [facility] Address [address] [place] [address] Care Team Providers Care Audio Visual Design Engineer Name Role Phone Kevon Hernadez MD Primary Care Provider Maksim Winchester [phone] REASON FOR VISIT change in bowel habits, family history of colon ca Encounters Encounter Location Date Provider Diagnosis [facility] [place] [address] [place], [place] [phone] 05/27/2023 Maksim Rebollar Colon polyps K63.5 ; [...]
== END 2024-03-18 14:49 | disposition home or self-care (01) ==
LOC: HO.CT 14:48
PROVIDERS: PCP Internal Medicine; Visit Provider Internal Medicine
DX: M54.50 Low back pain, unspecified (principal)
CPT/HCPCS: 72131

== ENCOUNTER → 2024-03-18 14:50 | Outpatient (BNV) | payer BC, SELFPAY | PROVIDERS: PCP Internal Medicine; Visit Provider Radiology Diagnostic Radiology | DX: M54.50 Low back pain, unspecified (principal) | CPT/HCPCS: 72131 ==

== ENCOUNTER 2024-04-28 13:57 | Outpatient (REF) | payer BC, SELFPAY ==
--- NOTE | 2024-04-28 14:05 | PFT_ITS ---
Indication: Asthma Spirometry [FEV1 to FVC 69%; FEV1 2.17 L; FVC 3.13 L. No significant response to bronchodilators noted.] Lung Volumes [Total lung capacity 101% predicted; residual volume 127% predicted] Diffusion Capacity [DLCO 127% predicted] Comparisons [none] Interpretation [There is an obstructive ventilatory defect consistent with likely uncontrolled asthma versus mild asthma COPD overlap syndrome. No significant response to bronchodilators. The patient does have significant air trapping due to the obstructive airway disease. Her diffusion capacity is significantly elevated and therefore exogenous carbon monoxide need to be considered. Clinical correlation warranted.] MTDD
[2024-04-28 14:49] VITALS: PULSE 102
--- OUTSIDE RECORDS SUMMARY | 2024-04-28 17:03 | XMS_ITS ---
Author Organization [facility] Address [address] [place] [address] Care Team Providers Care Enterprise Account Manager Name Role Phone Satya GARCIA, Kevon Primary Care Provider Maksim Winchester Unavailable [phone] REASON FOR VISIT change in bowel habits, family history of colon ca Encounters Encounter Location Date Provider [place] [facility] [place] [address] [place], [place] [phone] 05/27/2023 Maksim Rebollar Colon polyps K63.5 ; Family history of colon cancer Z80.0 ; Change in bowel habits R19.4 and Other hemorrhoids K64.8 Assessments Encounter Date Diagnosis (ICD Code) Assessment Notes Treatment Notes Treatment Clinical Notes Section Notes 05/27/2023 Colon polyps (ICD-10 - K63.5) 05/27/2023 Family history of colon cancer (ICD-10 - Z80.0) 05/27/2023 Change in bowel habits (ICD-10 - R19.4) 05/27/2023 Other hemorrhoids (ICD-10 - K64.8) Plan Of Treatment No Information Progress Notes * MIREYA WILSONADOB:1980 ([age] yo F)Acc No.[id number]:05/27/2023 COLON WITH MAC Patient:?LEBRON WILSON Provider:?Maksim Rebollar MD :1980???Age:42 Y???Sex:Female D ate:05/27/2023 Address:[address] [place], [place] [phone] Pcp:Kevon Hernadez MD Subjective: * Chief Complaints: * ???1. Change in bowel habits , family history of colon ca. * Medical History:? Objective: * Vitals:? Assessment: * Assessment: 1.?Colon polyps - K63.5 (Tracy easley)???2.?Family history of colon cancer - Z80.0???3.?Change in bowel habits - R19.4???4.?Other hemorrhoids - K64.8??? Plan: * Treatment: * Procedure Codes:?90626 LESIO N REMOVAL COLONOSCOPY * * The named appointment provid er may or may not be the originator of this progress note, and it is not deemed complete until electronically signed by the appointment provider. Sign off status: Pending * Provider:?Maksim Rebollar MD Date:? 024 Generated for Concepcion jha/Nasir/Dianeitting on:?04/28/2024 05:03 PM EST
--- OUTSIDE RECORDS SUMMARY | 2024-04-28 17:03 | XMS_ITS ---
Author Organization [facility] Address [address] [place] [address] Care Team Providers Care Chief Of Pediatric Urology Name Role Phone Kevon Hernadez MD Primary Care Provider Maksim Winchester [phone] REASON FOR VISIT prior authorizaiton Encounters Encounter Location Date Provider Diagnosis [facility] [address] [place] [address] 02/25/2023 Maksim Rebollar Plan Of Treatment No Information Progress Notes * MIREYA WILSONADOB:1980 ([age] yo F)Acc No.[id number]:02/25/2023 Patient:?LEBRON WILSON :1980???Age:42 Y???Sex:Female Address:[address] [place] [address], [address] * true * Date:? Generated for Concepcion jha/Nasir/eTransmitting on:?04/28/2024 05:03 PM EST
--- OUTSIDE RECORDS SUMMARY | 2024-04-28 17:03 | XMS_ITS | Patient Health Record ---
Author Organization [facility] Address [address] [place] [address] Care Team Providers Care Stock Patch Sawyer Name Role Phone Kevon Hernadez MD Primary Care Provider Maksim Winchester Unavailable [phone] Allergies No Known Allergies Results Component Value Reference Range Notes Ur Preg Test Reviewed date:05/27/2023 06:00:54 PM Interpretation: Performing Lab:[facility], [address] [place] [phone] Notes/Report: Urine NEGATIVE NEGATIVE This test was developed to detect early . False negative results may occur after the 5th - 7th week of when using this test method. If clinically indicated, consider a serum hCG. Pathology Reviewed date:06/10/2023 08:57:03 AM Interpretation: Performing Lab:[facility], [address] [place] [phone] Notes/Report: Name: Lebron Amaya Age /Sex: 42/F : 1980 Unit#: [id number] Attend Dr: Maksim Rebollar Re05/27/23 Status : [facility] Location: [facility] Disch: SPEC : [id number] RECD : 05/27/23 STATUS: JODYT REQ NUM: [id number] NETTE: 05/27/23-[address]: Maksim Rebollar ENTERED: 05/27/23-10 14 SP TYPE: Surgical OTHR DR: Kevon Hernadez MD ORDERED: HE Stain/9, Gross Micro L4/3 Diagnosis A. Colon, ascending, polyp: Tubular adenoma; negative for high-grade dysplasia and carcinoma. B. Colon, at 40 cm, polyp: Tubular adenoma; negative for high-grade dysplasia and carcinoma. C. Colon, at 30 cm, polyp: Tubulovillous adenoma, appears excised; negative for high- grade dysplasia and carcinoma. Clinical History Pre-Op Dx: Family hi story of malignant neoplasm of digestive organs Post-Op Dx: Polyps a nd hemorrhoids Microscopic Description Microscopic sections reviewed. Material Received A. Ascending colon polyp B. Polyp at 40 cm C. Polyp at 30 cm Gross Description Received in 3 parts. Part A: Received in formalin labeled ?ascending colon polyp? is a 0.25 cm loo-pink irregular tissue fra gment, submitted in toto in a cassette labeled A. Part B: Received in formalin labeled ?polyp at 40? is a 0.35 cm loo-pink papular tissue fragment, submitted in toto in a cassette labeled B. Part C: Received in formalin labeled ?polyp at 30 cm? is a 0.9 cm in greatest dimension congested and hemorr hagic, red-maroon papular tissue fragment, sectioned and entirely submitted in a casse tte labeled C. CEDS CONTINUED ON NEXT PAGE ------ Name: Lebron Amaya Age /Sex: 42/F : 1980 Unit#: [id number] Attend Dr: Maksim Rebollar Re05/27/23 Status : [facility] Location: [facility] Disch: ------ SPEC : [id number] RECD : 05/27/231006 STATUS: MT REYES NUM: [id number] NETTE: 05/27/[address] [facility] [address]: Maksim Rebollar ENTERED: 05/27/23- 14 SP TYPE: Surgical OTHR DR: Kevon Hernadez MD ORDERED: HE Stain/9, Gross Micro L4/3 Copies To: Kevon Hernadez MD [address] [place] [address] Maksim Rebollar [address] [place] [address] [address] [place] [address] ------ Signed (signature on file) Mona Forest 05/28/23 1307 ------ END OF REPORT Reason For Referral No Information Medications Medication SIG (Take, Route, Frequency, Duration) Notes Start Date End Date Status Albuterol Sulfate HFA 108 (90 Base) MCG/ACT Inhalation for 25 PRN Activ e Naproxen 500 MG Oral for 30 PRN Ac tive Levonorgest-Eth Estrad 91-Day 0.15-0.03 &0.01 MG TAKE 1 TABLET BY MOUTH EVERY DAY Oral for 91 Active Immunizations Vaccine Route Administration Date Status Comme nts Influenza Unknown 02/25/2023 Refused Social History Tobacco Use: Social History Observation Description Date Details (start date - stop date) Never Smoker NA - NA Tobacco Use/Smoking Question Answer Notes Patient is [...] Never (0 point) Points 4 Interpretation Positive Section Notes: Nonsmoker; 2 glasses of wine per day Problems Problem Type SNOMED Code ICD Code Onset Dates Problem Status W/U Status Risk Notes Problem [id number] Change in bowel habits (R19.4) Active confirmed Problem 119073110 Family history o f colon cancer (Z80.0) Active confirmed Problem 133707428 Irritable bowel syndrome with constipation (K58.1) Active confirmed Encounters Encounter Location Date Provider Diagnosis [facility] [place] [address] [place] [phone] 05/27/2023 Maksim Rebollar Colon polyps K63.5 ; [...] hemorrhoids (ICD-10 - K64.8) Plan Of Treatment Pending Test Test Name Order Date CELIAC PANEL #10 02/25/2023 Future Test Test Name Order Date COLONOSCOPY 02/25/2023 Insurance Providers Payer Name Payer Address Payer Phone Subscriber Number Group Number Insured Name Patient Relationship to Insured Coverage Start Date Coverage End Date [facility] [address] [place] [address] [phone] [id number] LEBRON AMAYA Self - patient is the insured Medical (General) History Medical History History ICD Code Mild asthma-inhaler prn Tachycardia ---no workup Denies [place],DM,CVA,Lung disease,renal dise ase Surgical History Surgery Date(Month/Year) Adenoids/Tonsils 1989 Cervical surgery for Grade III dyspalsia Ear tubes
--- OUTSIDE RECORDS SUMMARY | 2024-04-28 17:03 | XMS_ITS ---
Author Organization [facility] Address [address] [place] [address] Care Team Providers Care [employer] Name Role Phone Kevon Hernadez MD Primary Care Provider Maksim Winchester Unavailable [phone] Allergies No Known Allergies REASON FOR VISIT Patient presents today for abdominal pain Medications Medication SIG (Take, Route, Frequency, Duration) [...] Problem Status W/U Status Risk Notes Problem [id number] Irritable bowel syndrome with constipation (K58.1) Active confirmed Problem 53778464 Change in bowel habits (R19.4) Active confirmed Problem [id number] Family history o f colon cancer (Z80.0) Active confirmed Vital Signs Temperature 98.0 degrees Fahrenheit 02/25/19 24 Blood pressure systolic 000 mm Hg 02/25/19 24 Blood pressure diastolic 00 mm Hg 024 Height 5 ft in 02/25/2023 Weight 128 lb 6 oz lbs 02/25/2023 BMI 25.07 kg/m2 02/25/2023 Encounters Encounter Location Date Provider Diagnosis [facility] [address] [place] [address] 02/25/2023 Maksim Rebollar Irritable bowel syndrome with constipation K58.1 ; Change in bowel habits R19.4 and Family history of colon cancer Z80.0 Assessments Encounter Date Diagnosis (ICD Code) Assessment Notes Treatment Notes Treatment Clinical Notes Section Notes 02/25/2023 Irritable bowel syndrome with constipation (ICD-10 - K58.1) Start using fiber regularly such as 2 Metamucil or Citrucel fiber pills daily or twice a day with a lot of water. Stay on a good diet. Overall, Lebron appears quite well. We did review that her current symptoms over the past couple of years see most consistent with that of some irritable bowel syndrome in relation to her irregular bowel movements with some component of constipation. We did review that her abdominal discomfort seems consistent with some intestinal spasm in relation to having bowel movements and/or some constipation. I don't think this reflects anything such as inflammatory bowel disease. I advised her the first line of treatment would be with some fiber supplements to see if that can improve her bowel movement regularity and cut down the extremes of either not having a bowel movement or going frequently with its associated intestinal spasms and cramps. I did advise her to stay on a healthy high-fiber diet as well along with plenty of fluids. We did review the role of some antispasmodic such as dicyclomine or hyoscyamine to use on a p.r.n. basis for the discomfort, but at this point she would like to hold off on that by simply seeing how she does by using the fiber supplements and making her bowel movements more regular. I shall check laboratories for celiac, disease although I think that would be unlikely given the clinical history. We did discuss colonoscopy in regard to her family history of colon cancer and different [employer] malignancies, as well as her change in bowel habits over the past year or 2. Lebron was definitely interested in that. We did review the rationale for this in regard to colorectal cancer prevention and/or early detection. Full consent was obtained for this, including risks of bleeding and perforation. The procedure will be done with monitored anesthesia care. I did advise Lebron to contact me prior to the colonoscopy if she has any problems or questions I can be of assistance with. I did advise her to let me know if she wants to try an antispasmodic if her abdominal cramps and discomfort persist. Lebron was comfortable with this plan. Thank you again for allowing me to participate in Lebron's care. I shall continue to keep you advised of her progress. 02/25/2023 Change in bowel habits (ICD-10 - R19.4) Overall, Lebron appears quite well. We did review that her current symptoms over the past couple of years see most consistent with that of some irritable bowel syndrome in relation to her irregular bowel movements with some component of constipation. We did review that her abdominal discomfort seems consistent with some intestinal spasm in relation to having bowel movements and/or some constipation. I don't think this reflects anything such as inflammatory bowel disease. I advised her the first line of treatment would be with some fiber supplements to see if that can improve her bowel movement regularity and cut down the extremes of either not having a bowel movement or going frequently with its associated intestinal spasms and cramps. I did advise her to stay on a healthy high-fiber diet as well along with plenty of fluids. We did review the role of some antispasmodic such as dicyclomine or hyoscyamine to use on a p.r.n. basis for the discomfort, but at this point she would like to hold off on that by simply seeing how she does by using the fiber supplements and making her bowel movements more regular. I shall check laboratories for celiac, disease although I think that would be unlikely given the clinical history. We did discuss colonoscopy in regard to her family history of colon cancer and different [employer] malignancies, as well as her change in bowel habits over the past year or 2. Lebron was definitely interested in that. We did review the rationale for this in regard to colorectal cancer prevention and/or early detection. Full consent was obtained for this, including risks of bleeding and perforation. The procedure will be done with monitored anesthesia care. I did advise Lebron to contact me prior to the colonoscopy if she has any problems or questions I can be of assistance with. I did advise her to let me know if she wants to try an antispasmodic if her abdominal cramps and discomfort persist. Lebron was comfortable with this plan. Thank you again for allowing me to participate in Lebron's care. I shall continue to keep you advised of her progress. 02/25/2023 Family history of colon cancer (ICD-10 - Z80.0) Overall, Lebron appears quite well. We did review that her current symptoms over the past couple of years see most consistent with that of some irritable bowel syndrome in relation to her irregular bowel movements with some component of constipation. We did review that her abdominal discomfort seems consistent with some intestinal spasm in relation to having bowel movements and/or some constipation. I don't think this reflects anything such as inflammatory bowel disease. I advised her the first line of treatment would be with some fiber supplements to see if that can improve her bowel movement regularity and cut down the extremes of either not having a bowel movement or going frequently with its associated intestinal spasms and cramps. I did advise her to stay on a healthy high-fiber diet as well along with plenty of fluids. We did review the role of some antispasmodic such as dicyclomine or hyoscyamine to use on a p.r.n. basis for the discomfort, but at this point she would like to hold off on that by simply seeing how she does by using the fiber supplements and making her bowel movements more regular. I shall check laboratories for celiac, disease although I think that would be unlikely given the clinical history. We did discuss colonoscopy in regard to her family history of colon cancer and different [employer] malignancies, as well as her change in bowel habits over the past year or 2. Lebron was definitely interested in that. We did review the rationale for this in regard to colorectal cancer prevention and/or early detection. Full consent was obtained for this, including risks of bleeding and perforation. The procedure will be done with monitored anesthesia care. I did advise Lebron to contact me prior to the colonoscopy if she has any problems or questions I can be of assistance with. I did advise her to let me know if she wants to try an antispasmodic if her abdominal cramps and discomfort persist. Lebron was comfortable with this plan. Thank you again for allowing me to participate in Lebron's care. I shall continue to keep you advised of her progress. Plan Of Treatment Treatment Notes Assessment Notes Irritable bowel syndrome [...] Follow Up: prn, Reason: Progress Notes * MIREYA WILSONADOB:1980 (6 0 yo F)Acc No.[id number]:02/25/2023 Progress Notes Patient:?LEBRON WILSON Provider:?Maksim Rebollar MD :1980???Age:42 Y???Sex:Female D ate:02/25/2023 Address:[address] [place], [place] [id number] Pcp:Kevon Hernadez MD Subjective: * Chief Complaints: * ???Patient presents today fo r abdominal pain * HPI: ???incontinence:? I saw Lebron in consultation today in regard to further evaluation of her change in bowel habits, constipation, and abdominal discomfort. ?As you know, Lebron is a healthy 42-year-old female who describes at least one or 2 years of a change in her bowel habits. She describes that her bowel movements have always been fairly regular but over the past year or 2 have changed to where she will now have 2 days of no bowel movements followed by a day with multiple bowel movements with some abdominal cramping and discomfort. The episodes of discomfort are described as spasms and cramps which can last upwards of 10 or 15 minutes before resolving. She never has any associated nausea, vomiting, fevers, nor jaundice. She denies any urinary symptoms. She denies any hematochezia nor melena. She describes having seen her [employer] provider about a year or 2 ago and had a complete workup including ultrasounds and laboratories. ?She enjoys a good appetite. She denies any significant heartburn, dysphagia, early satiety, nor any unintentional weight loss. ?She does not use much in the way of any milk products. ?Lebron's family history is notable for a maternal grandfather having had colon cancer, a maternal grandmother having had ovarian cancer, and her mother and sister having had cervical cancer. She has no first-degree relatives with colorectal cancer. There is no family history of inflammatory bowel disease nor celiac disease. ?Lebron has never had a colonoscopy. ?Laboratories from August of 2022 revealed a normal CBC, chemistries and renal function, liver profile, and TSH. * ROS:?General/Constitutional:?Change in appetite?denies.?Chills?denies.?Fatigue?denies.?Ophthalmologic:?Comments?all negative.?ENT:?Comments?all negative.?Respiratory:?hemoptysis?denies.?Cough?denies.?Cardiovascular:?Chest pain?denies.?Orthopnea?denies.?Gastrointestinal:?Comments?See HPI for details.?Genitourinary:?Hematuria?denies.?Dysuria?denies.?Musculoskeletal:?Painful joints?denies.?Weakness?denies.?Skin:?Itching?denies.?Rash?denies.?Neurologic:?Headache?denies.?Seizures?denies.?Psychiatric:?Comments?all negative.? * Medical History:? * Surgical History:?Adenoids/T onsils 1990Cervical surgery for Grade III dyspalsia Ear tubes * Hospitalization/Major Diagno stic Procedure:?No Hospitalization History. * Family History:?Father: dece ased.?Mother: alive, Cervical cancer, diagnosed with HTN (hypertension).?Maternal Grand Mother: Ovarian cancer.?Siblings: Sister with cervical cancer.?Maternal Grand Father: diagnosed with Colon cancer.? * Social History:?Tobacco Use:?Tobacco Use/Smoking?Patient is a?nonsmoker.?Drugs/Alcohol:?Alcohol Screen?Did you have a drink containing alcohol in the past year??Yes,?How often did you have a drink containing alcohol in the past year??4 or more times a week (4 points),?How many drinks did you have on a typical day when you were drinking in the past year??1 or 2 drinks (0 point),?How often did you have 6 or more drinks on one occasion in the past year??Never (0 point),?Points?4,?Interpretation?Positive.?Miscellaneous:?Marital status: single. 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 ???Nonsmoker; 2 glasses of wine per day. * Medications:?TakingAlbuterol Sulfate HFA 108 (90 Base) MCG/ACT Aerosol Solution Inhalation , Notes: PRNNaproxen 500 MG Tablet Oral , Notes: PRNLevonorgest-Eth Estrad 91-Day 0.15-0.03 &0.01 MG Tablet TAKE 1 TABLET BY MOUTH EVERY DAY Oral Medication List reviewed and reconciled with the patientTaking Albuterol Sulfate HFA 108 (90 Base) MCG/ACT Aerosol Solution Inhalation , Notes: PRNTaking Naproxen 500 MG Tablet Oral , Notes: PRNTaking Levonorgest-Eth Estrad 91-Day 0.15-0.03 &0.01 MG Tablet TAKE 1 TABLET BY MOUTH EVERY DAY Oral Medication List reviewed and reconciled with the patient * Allergies:?N.K.D.A.yes[Aller gies Verified] Objective: * Vitals:?Wt: 128 lb 6 oz, Ht: 5 ft, BMI:25.07 Index, BP: 000/00 mm Hg, Temp: 98.0. * Examination: ???General Examination: ?GENERAL APPEARANCE:?pleasant, well nourished, well developed, in no acute distress.?EYES:?sclera non-icteric.?ORAL CAVITY:?mucosa moist.?NECK/THYROID:?no cervical lymphadenopathy, neck supple.?SKIN:?nonjaundiced, no spider angiomata.?HEART:?S1, S2 normal.?LUNGS:?clear to auscultation bilaterally.?ABDOMEN:?normal bowel sounds, no guarding or rigidity, no guarding or rigidity, no masses palpable, soft, nontender, nondistended.?EXTREMITIES:?no edema.?NEUROLOGIC:?alert and oriented.? Assessment: * Assessment: 1.?Irritable bowel syndrome with constipation - K58.1 (Primary)?2.?Change in bowel habits - R19.4?3.?Family history of colon cancer - Z80.0? Overall, Lebron appears quit e well. We did review that her current symptoms over the past couple of years see most consistent with that of some irritable bowel syndrome in relation to her irregular bowel movements with some component of constipation. We did review that her abdominal discomfort seems consistent with some intestinal spasm in relation to having bowel movements and/or some constipation. I don't think this reflects anything such as inflammatory bowel disease. I advised her the first line of treatment would be with some fiber supplements to see if that can improve her bowel movement regularity and cut down the extremes of either not having a bowel movement or going frequently with its associated intestinal spasms and cramps. I did advise her to stay on a healthy high-fiber diet as well along with plenty of fluids. We did review the role of some antispasmodic such as dicyclomine or hyoscyamine to use on a p.r.n. basis for the discomfort, but at this point she would like to hold off on that by simply seeing how she does by using the fiber supplements and making her bowel movements more regular. I shall check laboratories for celiac, disease although I think that would be unlikely given the clinical history. We did discuss colonoscopy in regard to her family history of colon cancer and different [employer] malignancies, as well as her change in bowel habits over the past year or 2. Lebron was definitely interested in that. We did review the rationale for this in regard to colorectal cancer prevention and/or early detection. Full consent was obtained for this, including risks of bleeding and perforation. The procedure will be done with monitored anesthesia care. I did advise Lebron to contact me prior to the colonoscopy if she has any problems or questions I can be of assistance with. I did advise her to let me know if she wants to try an antispasmodic if her abdominal cramps and discomfort persist. Lebron was comfortable with this plan. Thank you again for allowing me to participate in Lebron's care. I shall continue to keep you advised of her progress. Plan: * Treatment: 2.?Change in bowel habits?LAB: CELIAC PANEL #10 ?Procedure: COLONOSCOPY (Ordered for 02/25/2023) 3.?Family history of colon cancer?Procedure: COLONOSCOPY (Ordered for 02/25/2023)* with MACScheduled on at 11:30 * Immunizations:? Influenza (Not administered - Refused: Patient decision) * Procedure Codes:?1036F TOBAC CO NON-[id number] BP SCR NOT PRFRM REC REASON NOS * Preventive Medicine:? ??Counseling:?Care goal follow-up plan:?Above Normal BMI Follow-up?Giving encouragement to exercise,?BMI management provided?Yes.? * Follow Up:?prn * * Sign off status: Completed true * Provider:?Maksim Rebollar MD Date:? 024 Generated for Concepcion jha/Nasir/Dianeitting on:?04/28/2024 05:03 PM EST History and Physical Notes * HPI (History of Present Illness) Category Sub-Category Detail Notes Category Not es incontinence I saw Lebron in consultation today in regard to further evaluation of her change in bowel habits, constipation, and abdominal discomfort. As you know, Lebron is a healthy 42-year-old female who describes at least one or 2 years of a change in her bowel habits. She describes that her bowel movements have always been fairly regular but over the past year or 2 have changed to where she will now have 2 days of no bowel movements followed by a day with multiple bowel movements with some abdominal cramping and discomfort. The episodes of discomfort are described as spasms and cramps which can last upwards of 10 or 15 minutes before resolving. She never has any associated nausea, vomiting, fevers, nor jaundice. She denies any urinary symptoms. She denies any hematochezia nor melena. She describes having seen her [employer] provider about a year or 2 ago and had a complete workup including ultrasounds and laboratories. She enjoys a good appetite. She denies any significant heartburn, dysphagia, early satiety, nor any unintentional weight loss. She does not use much in the way of any milk products. Lebron's family history is notable for a maternal grandfather having had colon cancer, a maternal grandmother having had ovarian cancer, and her mother and sister having had cervical cancer. She has no first-degree relatives with colorectal cancer. There is no family history of inflammatory bowel disease nor celiac disease. Lebron has never had a colonoscopy. Laboratories from August of 2022 revealed a normal CBC, chemistries and renal function, liver profile, and TSH. Examination Category Sub-Category Detail Notes Category Not es General Examination GENERAL APPEARANCE: pleasant , well [...]
== END 2024-04-28 13:58 | disposition home or self-care (01) ==
LOC: HO.RESP 13:57
PROVIDERS: PCP Internal Medicine; Visit Provider Nurse Practitioner Family
DX: J45.909 Unspecified asthma, uncomplicated (principal)
CPT/HCPCS: 94010; 94640; 94727; 94729

== ENCOUNTER → 2024-04-28 14:05 | Outpatient (BNV) | payer BC, SELFPAY | PROVIDERS: PCP Internal Medicine; Visit Provider Hospitalist | DX: J45.909 Unspecified asthma, uncomplicated (principal) | CPT/HCPCS: 94060; 94727; 94729 ==

== ENCOUNTER 2024-12-28 09:29 | Outpatient (AMB) | payer OTHER, SELFPAY ==
--- OUTSIDE RECORDS SUMMARY | 2024-12-26 14:34 | XMS_ITS | Encounter Summary ---
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 Role Phone Kevon Hernadez MD Primary Care Provider [phone] Reason for Referral * Imaging (Routine) - Pending Review Specialty Diagnoses / Procedures Referred By Contac t Referred To Contact Radiology Diagnoses Pelvic pain Procedures US Pelvis Non OB Complete w Transvaginal Jerrica Perez CNM [address] [place] [address] Phone: tel: fax: [address] Phone: tel: Referral ID Status Reason Start Date Expiration Date V isits Requested Visits Authorized [id number] Pending Review 12/08/2024 12/08/2025 1 1 Reason for Visit * Imaging (Routine) - Pending Review Specialty Diagnoses / Procedures Referred By Contac t Referred To Contact Radiology Diagnoses Pelvic pain Procedures US Pelvis Non OB Complete w Transvaginal Jerrica Perez CNM [address] [place] [address] Phone: tel: fax: [address] Phone: tel: Referral ID Status Reason Start Date Expiration Date V isits Requested Visits Authorized [id number] Pending Review 12/08/2024 12/08/2025 1 1 Encounter Details Date Type Department Care Team (Latest Contact Info) Description 12/26/2024 2:34 PM EST - 12/26/2024 11:59 PM [facility] Hospital Encounter Radiology Department - [address] [id number] Pelvic pain Discharge Disposition: Home or Self Care Social History Tobacco Use Types Packs/Day Years Used Date Smoking Tobacco: Former Cigarettes Q uit: 01/31/2009 Smokeless Tobacco: Never Alcohol Use Standard Drinks/Week Comments Yes 0 (1 standard drink = 0.6 oz pur e alcohol) Housing Instability Answer Date Recorde d Are you worried that in the next 2 months you may not have stable housing? No 12/01/2024 Food Access & Nutrition Answer Date Rec orded Do you have access to a vari ety of food including fruits and vegetables? Yes 12/01/2024 Access to Healthcare Answer Date Record ed Within the last 3 months, tricia coates many times did you visit the emergency department for your medical care? 0 12/01/2024 Health Literacy Answer Date Recorded How often do you need to hav e someone help you when you read instructions, pamphlets, or other written material from your doctor or pharmacy? Never 12/01/2024 Caregiver: How often do you need to have someone help you when you read instructions, pamphlets, or other written material from your doctor or pharmacy? Not on file 12/01/2024 Financial Risk Answer Date Recorded How hard is it for you to pa y for the very basics like food, housing, medical care, and air conditioning / heating? Not very hard 12/01/2024 Transportation Answer Date Recorded Has the lack of transportati on kept you from meetings, work, or from getting things needed for daily living? No Has the lack of transportati on kept you from medical appointments or from getting medications? No 12/01/2024 Social Isolation Answer Date Recorded How often do you feel lonely or isolated from th ose around you? Never 12/01/2024 Food Risk Answer Date Recorded Within the past 12 months we worried whether our food would run out before we got money to buy more. Never true 12/01/2024 Within the past 12 months th e food we bought just didn't last and we didn't have money to get more. Never true 12/01/2024 Dependent Care Answer Date Recorded Do you need help finding or paying for care for your loved ones. For example, attendant child activity or elderly care for an older adult? No 12/01/2024 Education Answer Date Recorded Do you think completing more education or training, like finishing a GED, going to college, or learning a trade, would be helpful for you? N/A 12/01/2024 Employment and Income Answer Date Recor ded During the last four weeks, have you been actively looking for work? No 12/01/2024 Living Situation Answer Date Recorded What is your living situation? Unrecognized valu e 12/01/2024 Comments No Sex and Gender Information Value Date Recorded Sex Assigned at Not on file Legal Sex Female 3:55 PM EST Gender Identity Not on file Sexual Orientation Not on file documented as of this encounter Medications at Time of Discharge levonorgestrel-et hinyl estradiol (SEASONALE) 0.15 mg-30 mcg (91) per tablet Take 1 tablet by mouth 1 (one) time each day. 84 tablet 3 08/11/2024 08/10/2025 Simpesse 0.15 mg-30 mcg (84)/10 mcg (7) per tablet TAKE 1 TABLET BY MOUTH EVERY DAY 91 tablet 3 08/16/2024 documented as of this encounter Discharge Disposition Disposition Code Departure Means Destination Home or Self Care documented in this encounter Plan of Treatment Not on file documented as of this encounter Procedures Procedure Name Priority Date/Time Associated Diagnosis Comments US PELVIS NON OB COMPLETE W TRANSVAGINAL Routine 12/26/2024 3:40 PM EST Pelvic pain documented in this encounter Results * US Pelvis Non OB Complete w Transvaginal (12/26/2024 3:40 PM EST) Anatomical Region Laterality Modality Body, Pelvis Ultrasound 12/26/2024 4:07 PM EST Addenda Addendum by Pallavi Elliott MD on 12/28/2024 5:14 AM EST Addendum: There is voice recognition error on the measurements of the left ovary in the report. The left ovary measures 1.9 x 1.5 x 1.7 cm for a volume of 2.5 cc. -------- ADDENDUM -------- Dictated By: Pallavi Elliott Dictated Date: 12/28/2024 05:12 ET Assigned Physician: Pallavi Elliott Reviewed and Electronically Signed By: Pallavi Elliott Signed Date: 12/28/2024 05:14 ET Workstation ID: [id number] Transcribed By: Self Edit Transcribed Date: 12/28/2024 05:12 ET Impressions 12/26/2024 4:20 PM EST Fibroid uterus. -------- FINAL REPORT -------- Dictated By: Pallavi Elliott Dictated Date: 12/26/2024 16:07 ET Assigned Physician: Pallavi Elliott Reviewed and Electronically Signed By: Pallavi Elliott Signed Date: 12/26/2024 16:20 ET Workstation ID: [id number] Transcribed By: Self Edit Transcribed Date: 12/26/2024 16:07 ET Narrative 12/26/2024 4:20 PM EST US PELVIS NON OB COMPLETE W TRANSVAGINAL PELVIC ULTRASOUND History: Pelvic pain. Procedure: Real-time and color Doppler pelvic and transvaginal ultrasound. Comparison: Pelvic ultrasound 10/24/2020. FINDINGS: The uterus was normal in size for the patient's age and demonstrated normal endometrial stripe echogenicity. Uterus measures 8.5 x 3.5 x 4.3 cm for a volume of 67 cc and contains a 1.1 x 0.9 x 1.0 cm left posterior subserosal fibroid. Endometrial stripe measures 8 mm. No evidence of adnexal mass seen. Transvaginal sonographic examination was performed for better evaluation of the adnexa. Right ovary measures 2.1 x 1.2 x 1.1 cm for a volume of 1.5 cc. Left ovary measures 10.9 x 1.5 x 1.7 cm for a volume of 2.5 cc, and contains a 1.3 x 1.3 x 1.5 cm complex follicle. No free fluid was demonstrated. Procedure Note Pallavi Elliott MD - 12/26/2024 US PELVIS NON OB COMPLETE W TRANSVAGINAL PELVIC ULTRASOUND History: Pelvic pain. Procedure: Real-time and color Doppler pelvic and transvaginal ultrasound. Comparison: Pelvic ultrasound 10/24/2020. FINDINGS: The uterus was normal in size for the patient's age anddemonstrated normal endometrial stripe echogenicity. Uterus measures 8.5 x3.5 x 4.3 cm for a volume of 67 cc and contains a 1.1 x 0.9 x 1.0 cm leftposterior subserosal fibroid. Endometrial stripe measures 8 mm. No evidence of adnexal mass seen. Transvaginal sonographic examination was performed for better evaluationof the adnexa. Right ovary measures 2.1 x 1.2 x 1.1 cm for a volume of1.5 cc. Left ovary measures 10.9 x 1.5 x 1.7 cm for a volume of 2.5 cc,and contains a 1.3 x 1.3 x 1.5 cm complex follicle. No free fluid was demonstrated. IMPRESSION: Fibroid uterus. -------- FINAL REPORT -------- Dictated By: Pallavi Elliott Dictated Date: 12/26/2024 16:07 ET Assigned Physician: Pallavi Elliott Reviewed and Electronically Signed By: Pallavi Elliott Signed Date: 12/26/2024 16:20 ET Workstation ID: [id number] Transcribed By: Self Edit Transcribed Date: 12/26/2024 16:07 ET [facility] PROCED[facility] Edited Result - Final documented in this encounter Visit Diagnoses Diagnosis Pelvic pain documented in this encounter Additional Health Concerns Assessment Noted Time PHQ-9 Depression Total Score: 0 12/02/19 25 5:33 PM EDT documented as of this encounter Care Teams [employer] 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
[2024-12-28 09:33] VITALS: BP 128/88; PULSE 89; TEMP 36.3; O2SAT 98; BMI 24.7
--- NOTE | 2024-12-28 09:33 | MHC.PC.OV ---
Vital Signs 12/28/24 09:33 Height 5 ft Weight 126 lb 6 oz BMI 24.7 BP 128/88 Blood Pressure Location Lt brachial Position Sitting Pulse 89 Pulse Source Pulse Oximeter Temp 97.3 F Temp Source Temporal Artery Scan Pulse Oximetry (%) 98 Oxygen Delivery Method Room Air Intake Visit Reasons: Physical Allergies dog dander (dogs) Allergy (Unknown, Verified 12/28/24 09:36) Unknown Tobacco use date assessed: 12/28/24 Dental Screening Dental Screen Date: 12/28/24 Did you have a dental visit in the last 12 months?: Yes Did you have a dental problem in the last 6 months where you did not have access to dental care?: No Was dental information given to patient?: Patient has dentist HPI HPI Comments History of Present Illness Details Patient is a 44-year-old female with medical history significant for hyperlipidemia and asthma presenting today for annual physical. She has no new concerns today. In regards to her asthma, she was started on Symbicort and montelukast by pulmonology in December 2023. However, patient reports that she only took medications for a week and stopped it due to concerns that the steroid component in the Symbicort can cause side effects on the buttermaker continuous churn. Montelukast made her feel weird. She currently uses albuterol as needed which she needs it at least once daily. Denies shortness of breath or wheezing. Reports that her asthma symptoms are better during winter which is contrary to the known, stating that due to her seasonal allergies and gets aggravated more during warmer seasons. Of note, she has history of multiple seasonal allergies, previously had allergen immunotherapy for 7 years, last in 2016. In regards to hyperlipidemia, she is on atorvastatin 20 mg daily. However, reports that she has stopped it 2 weeks ago as she felt it makes her dehydrated. She reports good balanced healthy diet. Reports physical activity daily by walking. Healthcare maintenance: pap smear: States she had done Pap smear 2 weeks ago at [facility] and it was negative. Due for mammogram. Colonoscopy 05/27/2023 was remarkable for 3 polyps with biopsy significant for two tubular adenomas, one tubulovillous adenoma, all negative for high-grade dysplasia and carcinoma. Of note, colonoscopy was done due to family history of colonic polyps. Repeat in 3 years. Vaccines: Tdap 05/2024, PPSV 02/2014, had flu vaccine this season. [facility] Medical History Asthma Surgical History History of surgery Hx of myringotomy History of tonsillectomy and adenoidectomy Family History Father No problems noted. Mother No problems noted. Social History Housing: House Alcohol intake: never Patient Tobacco Use Status: Former Tobacco user Tobacco use type: Cigarette e-Cigarette/Vaping Use: Never Used Second Hand Smoke Exposure: No service: No Current occupational status: employed Current occupational exposures/hazards: No Cognitive needs: No Hearing needs: No Vision needs: No Questionnaire PHQ-9 Over the last 2 weeks, how often have you been bothered by any of the following problems? 1. Little interest or pleasure in doing things: not at all 2. Feeling down, depressed, or hopeless: not at all 3. Trouble falling or staying asleep, or sleeping too much: not at all 4. Feeling tired or having little energy: not at all 5. Poor appetite or overeating: not at all 6. Feeling bad about yourself - or that you are a failure or have let yourself or your family down: not at all 7. Trouble concentrating on things, such as reading the newspaper or watching television: not at all 8. Moving or speaking so slowly that other people could have noticed. Or the opposite - being so fidgety or restless that you have been moving around a lot more than usual: not at all 9. Thoughts that you would be better off or of hurting yourself in some way: not at all Total score: 0 Depression Screening Interpretation: Negative Depression Screening Done: Yes 65002 - PHQ-9 Billing: Yes Source: Developed by Drs. Maksim Pool, Berenice Steward, Vazquez Mayfield and colleagues, with an educational sridevi from [employer]. Thrive Questionnaire Date Thrive assessed: 12/26/24 I am a: Patient What is your living situation today?: I have a steady place to live Within the past 12 months, did the food you bought not last and you didn't have the money to get more?: Never true Within the past 12 months, did you worry whether your food would run out before you got money to buy more?: Never true Do you have trouble paying for medicines?: No Do you have trouble getting transportation to medical appointments?: No Do you have trouble paying your heating and electricity bill?: No Do you have trouble taking care of your child, family member or friend?: No Do you have trouble with day-to-day activities such as bathing, preparing meals, shopping, managing finances, etc.?: No Are you currently unemployed and looking for a job?: No Are you interested in more education?: No Please select the resources that you would like help with: None Currently or been in a relationship where the following occur: No concerns reported THRIVE Score: 0 AUDIT C Alcohol Use Questionnaire (AUDIT-C) 1. How often do you have a drink containing alcohol?: 4 or more times a week 2. How many drinks containing alcohol do you have on a typical day when you are drinking?: 3 or 4 3. How often do you have six or more drinks on one occasion?: Monthly Total Score: 7 DHAVAL-7 AMB Questionnaire DHAVAL-7 Date DHAVAL - 7 assessed: 12/28/24 Feeling nervous, anxious, or on edge: 0 = Not at all Not being able to stop or control worryin = Not at all Worrying too much about different things: 0 = Not at all Trouble relaxin = Not at all Being so restless that it is hard to sit still: 0 = Not at all Becoming easily annoyed or irritable: 0 = Not at all Feeling afraid as if something awful might happen: 0 = Not at all Total DHAVAL-7 score (0-4 normal; 5-9 mild; 10-14 moderate; 15-21 severe): 0 Source: Developed by Drs. Maksim Pool, Berenice Steward, Vazquez Mayfield and colleagues, with an educational sridevi from [employer]. DHAVAL-7 Assessment Billing DHAVAL-7 Assessment Tool: DHAVAL-7 Assessment 59238 Physical exam (Primary Care) Vital Signs: Last Vital Signs Temp 97.3 F 12/28/24 09:33 Pulse 89 12/28/24 09:33 BP 128/88 12/28/24 09:33 Pulse Ox 98 12/28/24 09:33 Oxygen Delivery Method Room Air 12/28/24 09:33 General: Well-appearing, alert, oriented ?3, in no acute distress. HEENT: Normocephalic, atraumatic, PERRLA, EOMI, no scleral icterus. External ears normal, tympanic membranes intact bilaterally, no erythema or effusion. Nares patent, normal mucosa pink, no discharge. No oral lesions, or pharyngeal erythema. Neck Supple. Cardiovascular: RRR, S1-S2 appreciated, no murmurs, rubs or gallops. Respiratory: Lungs clear to auscultation bilaterally, no wheezes, rales or rhonchi. Abdomen: Soft, nontender, nondistended. Normoactive bowel sounds. MSK: Normal range of motion in all extremities, no joint swelling or deformity. Neurologic: Alert and oriented X3, cranial nerves II?XII grossly intact, sensation and strength intact in bilateral lower and upper extremities. BMI result Body Mass Index 24.7 Tobacco/Smoking Status: Tobacco use Status Tobacco use date assessed 12/28/24 12/28/24 09:37 Patient Tobacco Use Status Former Tobacco user 12/28/24 09:37 Tobacco use type Cigarette 12/28/24 09:37 e-Cigarette/Vaping Use Never Used 12/28/24 09:37 PHQ-9: PHQ-9 Score PHQ-9: Total score 0 12/28/24 09:37 Depression Screening Interpretation: Negative Thrive Assessment: Date of Thrive Assessment Date Thrive assessed 12/26/24 12/28/24 09:37 Currently or been in a relationship where the following occur: No concerns reported Coding Level of Care Code Est Pt Prev Care 40-64y(17558) Diagnoses Physical exam Z00.00 Mixed hyperlipidemia E78.2 Hyperlipidemia type: mixed hyperlipidemia Mild persistent asthma without complication J45.30 Asthma severity: mild Asthma persistence: persistent Asthma complication type: uncomplicated Breast cancer screening by mammogram Z12.31 Additional Codes DHAVAL-7 Assessment Billing - DHAVAL-7 Assessment Tool: DHAVAL-7 Assessment [id number] ([id number]) PHQ-9 - 75479 - PHQ-9 Billing: Yes ([id number]) Assessment & Plan Assessment & Plan (1) Physical exam: Code(s): Z00.00 - Encounter for general adult medical examination without abnormal findings Category: Medical Plan: Healthcare maintenance: pap smear: States she had done Pap smear 2 weeks ago at [facility] and it was negative. To obtain records Due for mammogram, ordered Colonoscopy 05/27/2023 was remarkable for 3 polyps with biopsy significant for two tubular adenomas, one tubulovillous adenoma, all negative for high-grade dysplasia and carcinoma. Of note, colonoscopy was done due to family history of colonic polyps. Repeat in 3 years. Vaccines: Tdap 05/2024, PPSV 02/2014, had flu vaccine this season. will obtain blood work (2) Hyperlipidemia: Code(s): E78.5 - Hyperlipidemia, unspecified Category: Medical Qualifiers: Hyperlipidemia type: mixed hyperlipidemia Qualified Code(s): E78.2 - Mixed hyperlipidemia Plan: Patient was started on atorvastatin 20 mg in January 2024. However, she reports she stopped the medication 2 weeks ago as she felt his causing her dehydration. Patient reports healthy diet and daily exercise with walking. -will repeat lipid panel and re-evaluate. (3) Asthma: Code(s): J45.909 - Unspecified asthma, uncomplicated Category: Medical Qualifiers: Asthma severity: mild Asthma persistence: persistent Asthma complication type: uncomplicated Qualified Code(s): J45.30 - Mild persistent asthma, uncomplicated Plan: She was started on Symbicort and montelukast by pulmonology in December 2023. However, patient reports that she only took medications for a week and stopped it due to concerns that the steroid component in the Symbicort can cause side effects on the usp. Montelukast made her feel weird. She currently uses albuterol as needed which she needs it at least once daily. Denies shortness of breath or wheezing. Explained to patient that is systemic effects or substantially lower with inhaled corticosteroids then oral corticosteroids. Patient agreeable to resume Symbicort 2 puffs twice a day. Medication refilled. Will hold off on montelukast at this time, and see how she responds to this regimen with symbicort daily and albuterol prn. (4) Breast cancer screening by mammogram: Code(s): Z12.31 - Encounter for screening mammogram for malignant neoplasm of breast Plan: Never had mammogram before. Imaging ordered. No family or personal history of breast cancer. Orders: Orders Lipid Panel with Reflex Today E78.5 - Hyperlipidemia, unspecified Comprehensive Met. Panel Today R63.5 - Abnormal weight gain Complete Blood Count Auto Diff Today E78.5 - Hyperlipidemia, unspecified Vitamin D 25-OH (D2 and D3) Today Z00.00 - Encounter for general adult medical examination without abnormal findings MM tomosynthesis screening BI Today Z12.39 - Encounter for other screening for malignant neoplasm of breast Medications: Refilled budesonide-formoterol 80-4.5 mcg/actuation (Symbicort) 2 puffs inhalation Q12H 10.2 grams 6RF
--- OUTSIDE RECORDS SUMMARY | 2024-12-28 10:35 | XMS_ITS | Clinical Summary ---
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 84 tablet 3 5 08/11/19 26 Active Simpesse 0.15 mg-30 mcg (84)/10 mcg (7) per tablet TAKE 1 TABLET BY MOUTH EVERY DAY 91 tablet 3 5 Active fluconazole (DIFLUCAN) 150 mg tablet Take 1 tablet (150 mg total) by mouth 1 (one) time for 1 dose. If no improvement in symptoms in 3-4 days, repeat dose. 2 tablet 5 12/10/19 25 Encounters Date Type Department Care Team Description 12/26/2024 2:34 PM EST - 12/26/2024 11:59 PM EST Hospital Encounter Radiology Department - [address] [phone] Pelvic pain Discharge Disposition: Home or Self Care 12/09/2024 Telephone Obstetrics and Gynecology - [address] [phone] Tammy Restrepo MA 12/09/2024 Results Follow-Up Obstetrics and Gynecology - [address] [phone] Jerrica Perez CNM 12/08/2024 1:15 PM EDT Office Visit Obstetrics and Gynecology - [address] [phone] Jerrica Perez CNM Pelvic pain (Primary Dx); Vaginal discharge from Last 3 Months Surgical History Surgery Date Site/Laterality Comments TYMPANOSTOMY TUBE PLACEMENT PROCEDURE: HISTORICAL PE TUBES WISDOM TOOTH EXTRACTION 2009 PROCEDURE: HISTORICAL WISDOM TEETH EXTRACTION Medical History Medical History Date Comments Other specified personal his tory presenting hazards to health(V15.89) 1999 DX:Other specifie d personal history presenting hazards to health(V15.89); COMMENT: mild dysplasia cryo Asthma DX:Asthma Family History Medical History Relation Name Comments Brain cancer Father Colon cancer Maternal Grandfather Ovarian cancer Maternal Grandmother Cervical cancer Mother Cervical cancer Sister 1 Breast cancer Neg Hx Relation Name Status Comments Father 2 yrs ago, brai n tumor, cirrhosis Maternal Grandfather Maternal Grandmother Mother Alive Sister 1 Alive Sister 2 Alive Social History Tobacco Use Types Packs/Day Years [...] care for your loved ones. 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 [...] on file Sexual Orientation Not on file Obstetrics History * This document contains information received from the source organization and may not represent a complete record from that organization. Para Term AB IAB SAB Ectopic Multiple Livin g Live Births 1 Date Outcome GA Total Labor Labor/2nd/3rd Weight Sex Type Anes PTL Krystina A1 A5 Name Clin Last Filed Vital Signs Vital Sign Reading Time Taken Comments Blood Pressure 148/90 12/08/2024 1:21 PM EDT Pulse 117 12/08/2024 1:21 PM EDT Temperature - - Respiratory Rate 14 12/08/2024 1:21 PM EDT Oxygen Saturation - - Inhaled Oxygen Concentration - - Weight 58.9 kg (129 lb 12.8 oz) 12/08/2024 1:21 PM EDT Height 152.4 cm (5') 05/07/2023 2:49 PM EDT Body Mass Index 25.35 05/07/2023 2:49 PM EDT Plan of Treatment Health Maintenance Due Date Last Done Comments Breast Cancer Screening 1982 Hepatitis B Vaccines (1 of 3 - 19+ 3-dose series) 2001 Pneumococcal Vaccine: Pediatrics (0 to 5 Years) and At-Risk Patients (6 to 49 Years) (1 of 2 - PCV) 2001 HPV Vaccines (1 - 3-dose SCDM series) 2009 HIV Screening 02/01/2022 Hepatitis C Screening 02/01/2022 COVID-19 Vaccine ( season) 2024 05/16/2021, 04/03/2020, 03/13/2020 Influenza Vaccine (#1) 2024 , 12/19/2020, 12/14/2019, Additional history exists Social Influencers of Health Screening 12/01/2025 12/01/2024 Cervical Cancer Screening: Pap Smear 05/06/2026 05/07/2023, 10/11/2020 DTaP,Tdap,and Td Vaccines (3 - Td or Tdap) 06/09/2034 06/09/2024, 08/31/2008 RSV Immunization Adult Patients (1 - 1-dose 75+ series) 2057 Depression Screening Completed 12/01/2024 HIB Vaccines Aged Out No longer eligi ble based on patient's age to complete this topic Hepatitis A Vaccines Aged Out No long er eligible based on patient's age to complete this topic IPV Vaccines Aged Out No longer eligi ble based on patient's age to complete this topic MMR Vaccines Aged Out No longer eligi ble based on patient's age to complete this topic Meningococcal ACWY Vaccine Aged Out N o longer eligible based on patient's age to complete this topic Meningococcal B Vaccine Aged Out No l onger eligible based on patient's age to complete this topic RSV Immunization Patients Under 20 months Aged Out No longer eligible based on patient's age to complete this topic Varicella Vaccines Aged Out No longer eligible based on patient's age to complete this topic Procedures Procedure Name Priority Date/Time Associated Diagnosis Comments US PELVIS NON OB COMPLETE W TRANSVAGINAL Routine 12/26/2024 3:40 PM EST Pelvic pain TRICHOMONAS VAGINALIS ANTIGEN Routine 12/08/2024 1:41 PM EDT Pelvic pain Vaginal discharge WET PREP, GENITAL Routine 12/08/2024 1:4 1 PM EDT Pelvic pain Vaginal discharge CHLAMYDIA TRACHOMATIS AND NEISSERIA GONORRHOEAE PCR Routine 12/08/2024 1:41 PM EDT Pelvic pain PAP SMEAR Routine 05/07/2023 from Last 3 Months or Most Recently Relevant to Health Maintenance Results * US Pelvis Non OB Complete [...] Signed Date: 12/28/2024 05:14 ET Workstation ID: [id number] Transcribed By: Self Edit Transcribed Date: 12/28/2024 05:12 ET Impressions 12/26/2024 4:20 PM EST Fibroid uterus. -------- FINAL REPORT -------- Dictated By: Pallavi Elliott Dictated Date: 12/26/2024 16:07 ET Assigned Physician: Pallavi Elliott Reviewed and Electronically Signed By: Pallavi Elliott Signed Date: 12/26/2024 16:20 ET Workstation ID: [id number] Transcribed By: Self Edit Transcribed Date: 12/26/2024 [...] Signed Date: 12/26/2024 16:20 ET Workstation ID: [id number] Transcribed By: Self Edit Transcribed Date: 12/26/2024 16:07 ET Jerrica Perez CNM IMG US PROCEDURES Edited Result - Final * Trichomonas vaginalis antigen (12/08/2024 1:41 PM EDT) Trichomonas vaginalis Negative Negative 12/08/2024 8:03 PM EDT [facility] Swab Vaginal structure / Unknown Non-blood Collection / Unknown 12/08/2024 1:41 PM EDT 12/08/2024 1:41 PM EDT Jerrica DELA CRUZ LAB MICROBIOLOGY - GENERAL ORDE RABLES Final Result Performing Organization Address City/[facility]/ZIP Co de Phone Number [facility] [address] [place] [address], * Chlamydia trachomatis and Neisseria gonorrhoeae molecular study (12/08/2024 1:41 PM EDT) Neisseria gonorrhoeae PCR Negative Negative LAB MOLECULAR DIAGNOSTICS METHOD 12/09/2024 9:53 AM EDT [facility] Chlamydia trachomatis PCR Negative Negative LAB MOLECULAR DIAGNOSTICS METHOD 12/09/2024 9:53 AM EDT [facility] Swab Cervix uteri structure / Unknown Non-blood Collection / Unknown 12/08/2024 1:41 PM EDT 12/08/2024 1:41 PM EDT Jerrica Perez CNM LAB MICROBIOLOGY - GENERAL ORDE RABLES Final Result [facility] [address] [place] [address], [place] [phone] * (ABNORMAL) Wet prep, genital (12/08/2024 1:41 PM EDT) Clue Cells, Wet Prep Negative Negative 12/08/2024 8:03 PM EDT [facility] Yeast, Wet Prep Positive(A) Negative 12/08/2024 8:03 PM EDT [facility] Trichomonas, Wet Prep Indeterminate Negative 12/08/2024 8:03 PM EDT [facility] Comment:Refer to Trichomonas antigen. Swab Vaginal structure / Unknown Non-blood Collection / Unknown 12/08/2024 1:41 PM EDT 12/08/2024 1:41 PM EDT Jerrica Perez [facility] MICROBIOLOGY - [facility] FARRELL Final Result [facility] [address] [place] [address], [place] [phone] * Pap smear (05/07/2023) 05/07/2023 Narrative HISTORICAL TESTING LAB RESULTING AGENCY - 05/13/2023 3:30 PM EDT [id number] THINPREP PAP, IMAGED: NEGATIVE FOR SQUAMOUS INTRAEPITHELIAL LESION AND MALIGNANCY . FUNGAL ORGANISMS MORPHOLOGICALLY CONSISTENT WITH NYDIA SPP. BETH ROSE(ASCP) (CASE ELECTRONICALLY SIGNED 05 13 2023) RESULT OF APTIMA HIGH RISK HPV ASSAY: HIGH RISK HPV: NEGATIVE (SEROTYPES 16,18,31,33,35,39,45,51,52,56,58,59,66,68) COMPLETED ON 2023-05-11 ADEQUACY: SATISFACTORY ENDOCERVICAL/TRANSFORMATION ZONE COMPONENT ABSENT. SOURCE: THINPREP PAP HPV ANY DX: REFLEX 16 AND 18, CERVICAL, IMAGED CLINICAL INFORMATION: HPV ANY DIAGNOSIS. HORMONES, PAP HX NEGATIVE 2020, LMP 02/23/23, [Z01.419] Lorraine Lenore [facility] CYTOLOGY ORDERABLES Final Result HISTORICAL TESTING LAB RESULTING AGENCY from Last 3 Months or Most Recently Relevant to Health Maintenance Insurance [facility] Care Teams Stock Parts Fabricator Relationship Specialty Start Date End Date Kevon Hernadez MD [address] [facility] [address] [place], [place] [id number] PCP - General Internal Medicine 10/01/11
--- OUTSIDE RECORDS SUMMARY | 2024-12-28 10:35 | XMS_ITS | Patient Health Record ---
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 Name Role Phone Kevon Hernadez MD Primary Care Provider Maksim Winchester Unavailable [phone] Allergies No Known Allergies Reason For Referral No Information Medications Medication SIG (Take, Route, Frequency, Duration) Notes Start Date End Date Status Albuterol Sulfate HFA 108 (90 Base) MCG/ACT Inhalation; Duration: 25 PRN Active Naproxen 500 MG Oral; Duration: 30 PRN Active Levonorgest-Eth Estrad 91-Day 0.15-0.03 &0.01 MG TAKE 1 TABLET BY MOUTH EVERY DAY Oral; Duration: 91 Active Immunizations Vaccine Route Administration Date [...] Problem Status W/U Status Risk Notes Problem Change in bowel habit (16223322) Change in bowel habits (R19.4) Active confirmed Problem Family History of Cancer of Colon (Situation) (557702959) Family history of colon cancer (Z80.0) Active confirmed Problem Irritable bowel syndrome characterized by constipation (981771766) Irritable bowel syndrome with constipation (K58.1) Active confirmed Plan Of Treatment Pending Test Test Name Order Date CELIAC PANEL #10 02/25/2023 Future Test Test Name Order Date COLONOSCOPY 02/25/2023 Insurance Providers Payer Name Payer Address Payer Phone Subscriber Number Group Number Insured Name Patient Relationship to Insured Coverage Start Date Coverage End Date [facility] [address] [place] [address] [phone] [id number] LEBRON WILSON Self - patient is the insured Medical (General) History Medical History History ICD Code Mild asthma-inhaler prn Tachycardia ---no workup Denies NM,DM,CVA,Lung disease,renal dise ase Surgical History Surgery Date(Month/Year) Adenoids/Tonsils 1989 Cervical surgery for Grade III dyspalsia Ear tubes
--- OUTSIDE RECORDS SUMMARY | 2024-12-28 10:35 | XMS_ITS | Encounter Summary ---
Author Organization [facility] [place] [address] Care Team Providers Care Panel Gluer Name Role Phone Kevon Hernadez MD Primary Care Provider [phone] Encounter Details Date Type Department Care Team ([facility] Contact Info) Description 12/09/2024 Results Follow-Up Obstetrics and Gynecology - [address] [phone] Jerrica Perez CNM [address] [place] [address] Social History Tobacco Use Types Packs/Day Years [...] Record ed Within the last 3 months, ho w many times did you visit the emergency [...] care for your loved ones. For example, housekeeper child care or elderly care for an older adult? [...] on file documented as of this encounter Plan of Treatment Not on file documented as of this encounter Visit Diagnoses Not on filedocumented in this encounter Additional Health Concerns Assessment Noted Time PHQ-9 Depression Total Score: 0 12/02/19 25 5:33 PM EDT documented as of this encounter Care Teams Panel Gluer Relationship Specialty Start Date End Date Kevon Hernadez MD [address] [place] [address] PCP - General Internal Medicine 10/01/11 documented as of this encounter
== END 2024-12-28 10:13 | disposition home or self-care (01) ==
LOC: HO.HMCH 09:30
PROVIDERS: Visit Provider Student in an Organized Health Care Education/Training Program
DX: Z00.00 Encounter for general adult medical examination without abnormal findings (principal); E78.2 Mixed hyperlipidemia; J45.30 Mild persistent asthma, uncomplicated; Z12.31 Encounter for screening mammogram for malignant neoplasm of breast

== ENCOUNTER → 2024-12-28 09:29 | Outpatient (BNVA) | payer OTHER, SELFPAY | PROVIDERS: Visit Provider Student in an Organized Health Care Education/Training Program | DX: Z00.00 Encounter for general adult medical examination without abnormal findings (principal); J45.30 Mild persistent asthma, uncomplicated; E78.2 Mixed hyperlipidemia; R63.5 Abnormal weight gain; Z79.899 Other long term (current) drug therapy | CPT/HCPCS: 96127 ==